=== PATIENT | female | born 1995 | race Caucasian/White ===

== ENCOUNTER 2020-05-09 14:06 | Emergency (ER) | payer SELFPAY ==
[2020-05-09 14:15] VITALS: BP 95/77; PULSE 101; RESP 20; TEMP 36.6; O2SAT 97
--- NOTE | 2020-05-09 15:06 | ED.GENADUL_ITS ---
Discharge Plan Disposition Patient Disposition: HOME Condition: Stable Discharge Details Chief Complaint: Cellulitis Clinical Impression: Paronychia Primary Care Provider: Renetta,Local ED Provider: Priyank Amos Home Meds and New Rx's Prescriptions: New clindamycin HCl 300 mg capsule 300 mg PO TID 10 Days Qty: 30 RF: 0 Discharge Instructions Instructions: Paronychia (ED) Additional Instructions: Continue Bactrim as directed. Begin taking clindamycin as directed. Keep the area clean and dry, change antibiotic dressing daily. As we discussed, rest, elevate, warm soaks and/or compresses every 2 hours for 20 minutes. Please watch for new or worsening symptoms and return to the ER for any concerns. [id number] Tylenol and/or Motrin as directed for discomfort. I have placed you on the care management list to help expedite outpatient primary care follow-up. Discharge Data Discharge Date/Time-TO BE ENTERED AT DEPARTURE: 05/09/20 15:38 Medical Decision Making 24-year-old female presents with what appears to be an ongoing paronychia. She had an I&D performed nearly 2 weeks ago but did not start her antibiotics up until the last 5 days. She is on Bactrim and reports a history of IV drug use. Infection appears to be localized, she appears well, nontoxic, no lymphangitic streaking. Will perform I&D and place her on clindamycin for more atypical coverage. Discussed the importance of elevation, warm compresses and/or soaks, and changing antibiotic dressing daily. Patient has no additional questions or concerns and is comfortable discharge at this time. I have placed her on the ca re management team to help expedite outpatient primary care follow-up. Lab Data Lab results narrative: Wound culture pending HPI General Mode of arrival: ambulatory . Date/Time Provider Initiated Documentation: 05/09/20 14:32 . Limitations to Documentation: no limitations . Information obtained by: patient . HPI Narrative: This is a 24-year-old female, [id number], presenting for ongoing infection of her right middle finger. She reports that a little over 2 weeks ago while in [place] she de veloped an infection to her right hand third digit from what she described as a hangnail. She was seen in [place] for this, and had the area drained with a scalpel, and was prescribed antibiotics. She reports that she has been here for over 2 weeks quarantining. She only filled the prescription, Bactrim, 5 days ago. She reports that the finger is really not improving but not worsening either. She denies spreading of redness, fever, numbness, tingling, weakness. She denies rash elsewhere on her body. She does report a history of IV drug use. The area has been draining a small amount of pus over the past 24-36 hours. Related Data Home Medications Medication Instructions Recorded Confirmed clindamycin HCl 300 mg PO TID 10 Days #30 cap 05/09/20 Previous Rx's Medication Instructions Recorded clindamycin HCl 300 mg PO TID 10 Days #30 cap 05/09/20 Allergies Allergy/AdvReac Type Severity Reaction Status Date / Time No Known Allergies Allergy Unverified 05/09/20 14:17 General Stated Complaint: Cellulitis BOSSMAN: 3 Review of Systems Constitutional Constitutional: Denies fever(s) and Denies weakness Musculoskeletal Musculoskeletal: Denies arthralgias, Denies numbness and Denies tingling Integumentary/Breasts Skin/Breast: Reports erythema Neurologic Neurologic: Denies numbness, Denies tingling and Denies weakness [facility] Social History Smoking/Tobacco Use Status: Never Alcohol Intake: never Drug use: Occasionally Substance use type: heroin Details: last use 1 week ago IVDA Do you feel safe at home: Yes Do you feel safe in your relationship?: Yes Exam Const General: cooperative, healthy appearing, comfortable and no acute distress Orientation: alert, awake and oriented x3 HENMT Head: normal to inspection, normocephalic and atraumatic Mouth: moist mucous membranes Eyes Conjunctivae: conjunctivae normal Sclera: sclerae normal Neck Neck: normal visual inspection, trachea midline and supple Resp Effort & Inspection: normal respiratory effort and able to speak in complete sentences Cardio Rate: regular rate Rhythm: regular rhythm Skin Lesions: no lesions Neuro General: patient alert, patient awake, moves all extremities and no focal motor deficits Motor: muscle tone normal throughout and strength 5/5 throughout Sensory Exam: no sensory deficits noted Extrem Hand/finger images: 1. Distal to the DIP around the entire nail bed there is mild erythema, swelling, or warmth, tenderness. There is mild induration and fluctuance. Medially there is a small amount of discharge. No active bleeding. Neuro, vasc ular, tendon intact. Nail intact. Psych Appearance: grossly normal Mental Status: mental status grossly normal Course Vital Signs Vital signs: Vital Signs Temperature 36.6 C 05/09/20 14:15 Pulse 101 H 05/09/20 14:15 Respiratory Rate 20 05/09/20 14:15 Blood Pressure 95/77 L 05/09/20 14:15 Pulse Oximetry 97 05/09/20 14:15 Temperature 36.6 C 05/09/20 14:15 Temperature Source Skin 05/09/20 14:15 Pulse 101 H 05/09/20 14:15 Respiratory Rate 05/09/20 14:15 Respiratory Effort Non-Labored 05/09/20 14:17 Blood Pressure 95/77 L 05/09/20 14:15 Blood Pressure Position Sitting 05/09/20 14:15 Pulse Oximetry 97 05/09/20 14:15 Oxygen Delivery Method Room Air 05/09/20 14:15 Oxygen Flow Rate 0 05/09/20 14:15 Pain Level 6 05/09/20 14:15 Lab/Test Results Lab/Test Results: 05/09/20 15:00 Finger - Right First Digit Wound Culture - Pending 05/09/20 15:00 Finger - Right First Digit Gram Stain - Pending Procedures Abscess I/D Site: Hand (Third digit) Side (if applicable): Right Local Anesthetic: Lidocaine 2%, Bupivicaine 0.5% and Other Anesthetic ([id number]-hej-[id number] mixture) Amount of anesthesia used (mL): 4 Technique: Incised with #11 Blade Amount of fluid expressed (mL): 2 Irrigation: No Packing used?: None Complications: Pain, Bleeding, Nerve Injury and Other (Culture obtained)
[2020-05-09] MEDS: Bacitracin 1 PACKET (15:22)
--- NOTE | 2020-05-09 15:30 | NUR.NOTE ---
Nursing Note: Referral to establish care with a PCP was given to Care Management. Mae Garcia
== END 2020-05-09 15:38 | disposition home or self-care (01) ==
PROVIDERS: Emergency Provider Physician Assistant
DX: L03.011 Cellulitis of right finger (principal)
CPT/HCPCS: 10060; 87077; 87070; 87205

== ENCOUNTER 2020-12-03 16:30 | Observation (INO) | payer MEDICAID, SELFPAY ==
[2020-12-03] VITALS (9 sets, daily range): BP systolic 118–148; BP diastolic 74–111; PULSE 85–123; RESP 17–18; TEMP 36.8–37.4; O2SAT 100
--- NOTE | 2020-12-03 16:32 | ED.GENADUL_ITS ---
Discharge Plan Disposition Patient Disposition: [facility] INPATIENT Condition: Fair Discharge Details Clinical Impression: Auditory hallucinations, IV drug user, Chest pain Admit Date/Time: 12/03/20 19:21 Admit Provider: Willie Duque Attending Provider: Willie Duque Primary Care Provider: Renetta,Local ED Provider: Sydnee Ortiz Discharge Data Discharge Date/Time-TO BE ENTERED AT DEPARTURE: 12/03/20 20:46 Medical Decision Making 24-year-old female with a history of IV drug abuse presents for evaluation for intrusive thoughts and concern for psychosis. Patient states she is hearing voices telling her that she is already . Sh e denies SI/HI. She last injected fentanyl today but states it was only remnants referred to as wash. Patient is tearful and anxious. Heart rate 120s. She is afebrile. No focal deficits. No meningeal signs. Differential diagnosis includes drug reaction, withdrawal, dehydration, psychosis, electrolyte abnormality, etc. EKG done on arrival notes a rate of 104, sinus, no STEMI, nondiagnostic. As patient's presentation may be a combination of organic and psychiatric components, or drug withdrawal or adverse reaction, will start with screening labs, urinalysis, urine and give IV fluids and Ativan and reassess. Labs reviewed. White blood cell count 13.51. Potassium 3.4. Bicarb 20.4. Anion gap 15.6. Troponin negative. Urinalysis notes positive nitrate and 5-10 WBCs. UDS positive for cocaine. Patient reassessed and she is still complaining of symptoms of anxiety and chest pain. Patient appears anxious. Discussed with patient that her symptoms could be multifactorial including drug use vs withdrawal, dehydration, insomnia. I do not think that patient is medically cleared to speak with mental health. Discussed that I think patient would benefit from inpatient hospitalization for IV fluids, continued monitoring and evaluation with mental health once medically cleared. Dose of Rocephin ordered for UTI. Discussed with hospitalist who accepts patient for admission. Pt states she is interested in starting MAT for opioid addiction and withdrawal. I don't think pt is medically stable to start this process at this time but may be able to start tomorrow after observation overnight and evaluation by mental health once medically cleared. D-dimer resulted after patient transferred to the floor and elevated. Discussed with Dr. Duque. CT chest ordered. Patient has a 20-gauge IV in the left AC. Radiology requested an 18-gauge in the right AC. I placed an 18-gauge needle just below the right AC. No blood return but flushes well. CT chest negative for PE. Medical Records Medical records reviewed: Yes I reviewed the patient's medical records. Imaging Data Radiologic Study: Radiologist's impression: XR Chest Exam date and time: 12/03/2020 7:28 PM Age: 24 years old Clinical indication: Chest pain TECHNIQUE: Imaging protocol: XR of the chest Views: 2 views. COMPARISON: No relevant prior studies available. FINDINGS: Lungs: Unremarkable. No consolidation. Pleural spaces: Unremarkable. No pleural effusion. No pneumothorax. Heart/Mediastinum: Unremarkable. No cardiomegaly. Bones/joints: Unremarkable. IMPRESSION: No acute abnormality. Lab Data Lab results reviewed: Yes I reviewed the patient's lab results. Labs: 12/03/20 16:55 Urine - Reflex from Ua Urine Culture - Pending Laboratory Tests Range/Units 12/03/20 12/03/20 12/03/20 16:55 16:55 17:30 WBC (4.4-10.8) 10^3/uL RBC (3.93-5.22) 10^6/uL Hgb (11.2-15.7) g/dL Hct (36.0-46.0) % MCV (80-95) fL MCH (27.0-33.0) pg MCHC (32.0-36.0) % RDW (11.7-14.6) % Plt Count (130-400) 10^3/uL MPV (8.0-11.0) fL Immature Gran % Neutrophils % Lymphocytes % Monocytes % Eosinophils % Basophils % Nucleated RBC % % Absolute Neutrophils (1.2-6.7) 10^3/uL Absolute Lymphocytes (1.2-3.4) 10^3/uL Absolute Monocytes (0.1-0.8) 10^3/uL Absolute Eosinophils (0.0-0.7) 10^3/uL Absolute Basophils (0.0-0.2) 10^3/uL Sodium (136-145) mmol/L 137 Potassium (3.5-5.1) mmol/L 3.4 L Chloride (98-107) mmol/L 101 Carbon Dioxide (21.0-32.0) mmol/L 20.4 L Anion Gap (3-11) mmol/L 15.6 H BUN (7-18) mg/dL 5 L Creatinine (0.55-1.02) mg/dL 0.6 Estimated GFR/1.73 m2 (mL/min/1.73m2) >= 60.00 Glucose (74-106) mg/dL 102 Calcium (8.5-10.1) mg/dL 9.8 Total Bilirubin (0.2-1.0) mg/dL 0.6 AST (15-37) U/L 13 L ALT (14-59) U/L 17 Alkaline Phosphatase (46-116) U/L 119 H Troponin I (<0.06) ng/mL Total Protein (6.4-8.2) g/dL 8.6 H Albumin (3.4-5.0) g/dL 3.7 Urine Color (Yellow) Yellow Urine Clarity (Clear) Clear Urine pH (5-8) 7.0 Ur Specific Worth (1.005-1.025) 1.020 Urine Protein (Negative) mg/dL Negative Urine Ketones (Negative) mg/dL 40 H Urine Blood (Negative) Negative Urine Nitrite (Negative) Positive H Urine Bilirubin (Negative) Negative Urine Urobilinogen (Up TO 0.2) EU/dL 0.2 Ur Leukocyte Esterase (Negative) Negative Urine RBC (0-2) HPF Negative Urine WBC (0-5) HPF 5-10 Ur Epithelial Cells (Negative) HPF Rare Urine Crystals (Negative) HPF Negative Urine Bacteria (Negative) HPF Many Urine Casts (Negative) LPF Negative Urine Mucus (Negative) Negative Ur Culture Indicated? Yes Urine Glucose (Negative) mg/dL Negative Urine Opiates Screen (Negative) Negative Urine Methadone Screen (Negative) Negative Ur Barbiturates Screen (Negative) Negative Ur Tricyclics Screen (Negative) Negative Ur Amphetamines Screen (Negative) Negative U Benzodiazepines Scrn (Negative) Negative Urine Cocaine Screen (Negative) Positive A Ur THC Screen (Negative) Negative Ethyl Alcohol (<3) mg/dL < 3.0 Range/Units 12/03/20 12/03/20 17:30 17:30 WBC (4.4-10.8) 10^3/uL 13.51 H RBC (3.93-5.22) 10^6/uL 4.04 Hgb (11.2-15.7) g/dL 11.5 Hct (36.0-46.0) % 34.2 L MCV (80-95) fL 84.7 MCH (27.0-33.0) pg 28.5 MCHC (32.0-36.0) % 33.6 RDW (11.7-14.6) % 13.0 Plt Count (130-400) 10^3/uL 235 MPV (8.0-11.0) fL 9.8 Immature Gran % 0.4 Neutrophils % 86.8 Lymphocytes % 6.8 Monocytes % 5.8 Eosinophils % 0.1 Basophils % 0.1 Nucleated RBC % % 0 Absolute Neutrophils (1.2-6.7) 10^3/uL 11.73 H Absolute Lymphocytes (1.2-3.4) 10^3/uL 0.92 L Absolute Monocytes (0.1-0.8) 10^3/uL 0.78 Absolute Eosinophils (0.0-0.7) 10^3/uL 0.01 Absolute Basophils (0.0-0.2) 10^3/uL 0.01 Sodium (136-145) mmol/L Potassium (3.5-5.1) mmol/L Chloride (98-107) mmol/L Carbon Dioxide (21.0-32.0) mmol/L Anion Gap (3-11) mmol/L BUN (7-18) mg/dL Creatinine (0.55-1.02) mg/dL Estimated GFR/1.73 m2 (mL/min/1.73m2) Glucose (74-106) mg/dL Calcium (8.5-10.1) mg/dL Total Bilirubin (0.2-1.0) mg/dL AST (15-37) U/L ALT (14-59) U/L Alkaline Phosphatase (46-116) U/L Troponin I (<0.06) ng/mL < 0.05 Total Protein (6.4-8.2) g/dL Albumin (3.4-5.0) g/dL Urine Color (Yellow) Urine Clarity (Clear) Urine pH (5-8) Ur Specific Worth (1.005-1.025) Urine Protein (Negative) mg/dL Urine Ketones (Negative) mg/dL Urine Blood (Negative) Urine Nitrite (Negative) Urine Bilirubin (Negative) Urine Urobilinogen (Up TO 0.2) EU/dL Ur Leukocyte Esterase (Negative) Urine RBC (0-2) HPF Urine WBC (0-5) HPF Ur Epithelial Cells (Negative) HPF Urine Crystals (Negative) HPF Urine Bacteria (Negative) HPF Urine Casts (Negative) LPF Urine Mucus (Negative) Ur Culture Indicated? Urine Glucose (Negative) mg/dL Urine Opiates Screen (Negative) Urine Methadone Screen (Negative) Ur Barbiturates Screen (Negative) Ur Tricyclics Screen (Negative) Ur Amphetamines Screen (Negative) U Benzodiazepines Scrn (Negative) Urine Cocaine Screen (Negative) Ur THC Screen (Negative) Ethyl Alcohol (<3) mg/dL ECG Data Attestation: I personally reviewed and interpreted this ECG (s) as follows: Interpretation: Rate of 104, sinus, no acute ST elevation or depression. W[place] 128. QRS 89. QTc 465. HPI General Mode of arrival: ambulatory . Date/Time Provider Initiated Documentation: 12/03/20 16:31 . Limitations to Documentation: no limitations . Information obtained by: patient . HPI Narrative: Patient is a 24-year-old female with a history of IV drug abuse and addiction presents for concern for psychosis. Patient states she has been injecting heroin for the past 5 years but more consistently over the past year. She states she last used pure heroin yesterday but used wash today which is the remnants of heroin. She states starting yesterday she began to have intrusive thoughts of voices telling her that she is already but she knows this does not make sense. She states she has not been able to sleep for the past 2 days. She states her mind is running and she cannot control the constant thoughts. She denies any thoughts of wanting to harm anyone else. She states she does also smokes crack cocaine which she last used a few days ago. She states in addition to the intrusive thoughts she has having feelings of chest pain, shortness of breath and anxiety. She denies any known fever, cough, new medications, recent travel, vomiting, diarrhea or abdominal pain. Related Data Home Medications Medication Instructions Recorded Confirmed Unknown [No Known Home Meds] 12/03/20 12/03/20 Allergies Allergy/AdvReac Type Severity Reaction Status Date / Time No Known Allergies Allergy Unverified 12/03/20 16:43 General BOSSMAN: 3 Review of Systems All systems reviewed & are unremarkable except as noted in HPI and below Constitutional Constitutional: Reports as per HPI, Denies chills and Denies fever(s) Eyes Eyes: Denies blurry vision ENT Ears, Nose, Mouth, and Throat: Denies dizziness, Denies sore throat and Denies throat swelling Cardiovascular Cardiovascular: Denies chest pain and Denies dyspnea Respiratory Respiratory: Denies cough and Denies dyspnea Gastrointestinal Gastrointestinal: Denies abdominal pain, Denies diarrhea and Denies vomiting Genitourinary Genitourinary: Denies hematuria and Denies dysuria Musculoskeletal Musculoskeletal: Denies back pain and Denies numbness Integumentary/Breasts Skin/Breast: Denies lesions and Denies rash Neurologic Neurologic: Denies dizziness, Denies localized weakness and Denies numbness Allergic/Immunologic Allergic/Immunologic: Denies throat swelling [facility] Medical History (Updated 12/03/20 @ 22:47 by Willie Duque) Opiate addiction Surgical History No significant past surgical history Family History (Updated 12/03/20 @ 22:31 by Willie Duque) Other Depression Social History (Updated 12/03/20 @ 22:33 by Willie Duque) Smoking/Tobacco Use Status: Current every day Tobacco Type: e-cigarettes Smoking risk assessment performed?: Yes Alcohol Intake: never Drug use: Occasionally Substance use type: heroin Details: used wash earlier today, has no used IV in 2 days Do you feel safe at home: Yes Do you feel safe in your relationship?: Yes Additional Social history: Living in [place] with her female anders?, who also uses Not working. Graduated high school and started some college before getting deep into drugs. Parents live in [place] Exam Const General: cooperative and no acute distress HENMS Head: normal to inspection Face and sinus: normal facial exam Eyes General: appearance normal, both eyes and all related structures Pupils: PERRL EOM: EOM intact bilaterally Neck Neck: normal visual inspection and No submandibular swelling Lymphatic: no lymphadenopathy noted Chest Chest: normal inspection of the chest and no tenderness Resp Effort & Inspection: normal respiratory effort and able to speak in complete sentences Auscultation: clear to auscultation bilaterally Cardio Rate: tachycardic Rhythm: regular rhythm GI Inspection: normal to inspection Palpation: soft, not firm, not rigid and nontender Auscultation: normal bowel sounds Skin General skin exam: no rashes or lesions noted Neuro General: patient alert, patient awake and patient oriented x3 Cognition: normal cognition Speech: speech normal Motor: muscle tone normal throughout Sensory Exam: no sensory deficits noted Extrem General: normal to inspection, full ROM, capillary refill normal, no calf tenderness bilaterally and no edema Psych Appearance: grossly normal Mental Status: mental status grossly normal Speech and Movement: speech and movement normal Affect: normal affect
--- NOTE | 2020-12-03 16:45 | RT.EKG_ITS ---
APPROVED REPORT Exam: Resting ECG Patient Location: E HR:104 bpm ECG Measurements Heart Rate 104 AXIS LA 128 P 78 QRSd 89 QRS 74 QT 353 T 61 QTc 465 Conclusion Sinus tachycardia...rate> 99 I have reviewed and interpreted ECG and agree with software generated interpretation.
[2020-12-03 17:25] LABS: Bilirubin Negative (Negative); Blood Negative (Negative); Clarity Clear (Clear); Glucose Negative (Negative); Ketones 40 mg/dL (Negative); Leukocyte Esterase Negative (Negative); Nitrite Positive (Negative); Urobilinogen 0.2 EU/dL (Up TO 0.2)
[2020-12-03 17:33] LABS: *AMPHETAMINES SCREEN URINE Negative (Negative); *BARBITURATES SCREEN URINE Negative (Negative); *BENZODIAZEPINES SCREEN URINE Negative (Negative); Cannabinoids THC Negative (Negative); Cocaine Screen,Urine Positive (Negative); METHADONE URINE SCREEN Negative (Negative); OPIATES URINE SCREEN Negative (Negative)
[2020-12-03 17:38] LABS: Tricyclic Antidepressants Negative (Negative)
[2020-12-03] MEDS: Normal Saline 1,000 ML 1000 ML IV ×2 (17:40→19:45)
[2020-12-03] MEDS: LORazepam 2 MG/ML VIAL 0.5 MG IVP ×2 (17:40→17:52)
[2020-12-03] MEDS: Normal Saline Flush 10 ML SYR IVP ×2 (17:41→23:07)
[2020-12-03 17:44] LABS: Abs Immature Grans 0.05 10^3/uL (0.0-0.06); Absolute Basophil Count 0.01 10^3/uL (0.0-0.2); Absolute Eosinophil Count 0.01 10^3/uL (0.0-0.7); Absolute Lymphocyte Count 0.92 10^3/uL (1.2-3.4); Absolute Neutrophil Count 11.73 10^3/uL (1.2-6.7); Basophils % 0.1; Eosinophils % 0.1; HCT 34.2 % (36.0-46.0); HGB 11.5 g/dL (11.2-15.7); Immature Grans % 0.4; Lymphocytes % 6.8; MCH 28.5 pg (27.0-33.0); MCHC 33.6 % (32.0-36.0); MCV 84.7 fL (80-95); MPV 9.8 fL (8.0-11.0); Monocytes % 5.8; Neutrophils % 86.8; Nucleated RBC 0 %; Platelet Count 235 10^3/uL (130-400); RBC 4.04 10^6/uL (3.93-5.22); RDW-SD 40.1 fL; WBC 13.51 10^3/uL (4.4-10.8)
[2020-12-03 17:49] LABS: Absolute Monocyte Count 0.78 10^3/uL (0.1-0.8)
[2020-12-03 17:53] LABS: Bacteria Many HPF (Negative); C & S Indicated? Yes; Casts Negative LPF (Negative); Crystals Negative HPF (Negative); Epithelial Cells Rare HPF (Negative); Mucus Negative (Negative); RBC Negative HPF (0-2)
[2020-12-03 17:57] LABS: ALT 17 U/L (14-59); AST 13 U/L (15-37); Albumin 3.7 g/dL (3.4-5.0); Alkaline Phosphatase 119 U/L (46-116); Anion Gap 15.6 mmol/L (3-11); BUN 5 mg/dL (7-18); Bilirubin, Total 0.6 mg/dL (0.2-1.0); CO2 20.4 mmol/L (21.0-32.0); CREATININE 0.6 mg/dL (0.55-1.02); Calcium 9.8 mg/dL (8.5-10.1); Chloride 101 mmol/L (98-107); Glucose 102 mg/dL (74-106); Potassium 3.4 mmol/L (3.5-5.1); Sodium 137 mmol/L (136-145); Total Protein 8.6 g/dL (6.4-8.2)
[2020-12-03 18:28] LABS: ETHANOL BLOOD < 3.0 mg/dL (<3)
[2020-12-03 19:41] LABS: Troponin I < 0.05 ng/mL (<0.06)
--- NOTE | 2020-12-03 19:42 | DI.RAD_ITS ---
EXAM: XR CHEST 2V PA LATERAL CLINICAL HISTORY: chest pain, r/o acute disease TECHNIQUE: 2D digital imaging was performed. COMPARISON: No exams were available for comparison FINDINGS: The heart is not enlarged. The lungs are clear and well expanded. No pleural effusion seen. Mediastin al contours appear intact. IMPRESSION: Normal chest. RADIATION DOSE DELIVERED: Total DLP
[2020-12-03] MEDS: cefTRIAXone 1 GM/50 ML BAG IVPB (19:45)
--- NOTE | 2020-12-03 19:51 | DI.VRAD_ITS ---
PROCEDURE INFORMATION: Exam: XR Chest Exam date and time: 12/03/2020 7:28 PM Age: 24 years old Clinical indication: Chest pain TECHNIQUE: Imaging protocol: XR of the chest Views: 2 views. COMPARISON: No relevant prior studies available. FINDINGS: Lungs: Unremarkable. No consolidation. Pleural spaces: Unremarkable. No pleural effusion. No pneumothorax. Heart/Mediastinum: Unremarkable. No cardiomegaly. Bones/joints: Unremarkable. IMPRESSION: No acute abnormality. Dictated and Authenticated by: Navid Allen MD. Ordering:ELIZABETH Randhawa MD
[2020-12-03] MEDS: Ketorolac 30 MG/ML VIAL IVP (20:19)
[2020-12-03] MEDS: LORazepam 2 MG/ML VIAL 1 MG IVP (20:20)
[2020-12-03 20:46] LABS: D-Dimer 1194 ng/mlFEU (<500)
[2020-12-03 20:47] LABS: Source Nasal/Nares
--- NOTE | 2020-12-03 21:45 | DI.CT_ITS ---
EXAM: CT CHEST PE CTA CLINICAL HISTORY: chest pain, tachycardia, elev d dimer, r/o PE. TECHNIQUE: Imaging Protocol: Axial CT angiography was performed with multi-slice acquisition and mu lti-planar and/or 3D reconstructions. CONTRAST MATERIAL: Intravenous: Omnipaque 350 Contrast volume:structured data in ml COMPARISON: No exams were available for comparison FINDINGS: CT angiography of the chest was performed with intravenous infusion of 85 cc of Omnipaque 350. The lungs are clear. No pleural effusion. Tracheobronchial tree appears intact. No evidence of pulmonary embolic disease. Thoracic aorta is of normal diameter, no thoracic aortic an eurysm or dissection, major branch vessels appear intact. No mediastinal or hilar adenopathy. Images obtained through the upper abdomen show unremarkable appearance of the visualized portions of the liver, spleen, pancreas, adrenals, and kidneys. IMPRESSION: Negative CT angiogram of the chest. No evidence of pulmonary embolic disease. RADIATION DOSE DELIVERED: 216.56mGy.cm Total DLP 216.56mGy.cm Total DLP DATA REPOSITORY: All CT scans at this facility are submitted to the National Radiology Data Registry (NRDR) Dose Index Registry (DIR) with the [employer] ([employer]). RADIATION OPTIMIZATION: All CT scans at this facility use at least one of these dose optimization te chniques: automated exposure control; mA and/or kV adjustment per patient size (includes targeted exa ms where dose is matched to clinical indication); or iterative reconstruction.
--- NOTE | 2020-12-03 22:22 | HPE_ITS ---
Date of service: 12/03/20 Time of Service: 22:22 Assessment and Plan Assessment and plan (1) Auditory hallucinations: Status: Acute Assessment and plan: Patient's history just a regular pattern of auditory hallucinations associated with coming down from stimulants. The cocaine in her urine is consistent with this. She denies having psychotic symptoms outside of the context of drug use, so I do not think this is a primary psychiatric condition. We will treat supportively had monitor. I will only use antipsychotic if needed for her own safety or the safety of those caring for her. (2) Opiate addiction: Status: Acute Assessment and plan: Patient has a history of several years of ongoing opioid use. This is also complicated by stimulant abuse. She has never been on maintenance therapy, but has used Suboxone for medically assisted withdrawal in the past. She is interested in getting him to treatment, and had already contacted assistant women's tennis coach to help her and her fianc?. She currently has evidence of mild to moderate opioid withdrawal, though she is somewhat sleepy likely rela vanda to the benzodiazepine she got in the emergency room. Given her overall picture I think that it would be safe appropriate to start buprenorphine therapy at 4 mg and monitor her clinically. Will not give additional sedative until we see how she responds. If she is still having symptoms tomorrow morning, I would increase to 8 mg sublingually. She should be transitioned to maintenance therapy upon discharge, with of versus spoke placement based on treatment needs questionnaire score. (3) IV drug user: Status: Acute Assessment and plan: Given this risk factor, I will screen for HIV and hepatitis with morning labs. (4) Chest pain: Status: Acute Assessment and plan: This may simply be musculoskeletal given his reproducible. EKG is not consistent with ischemia related to cocaine use. I did discuss data troponin with Dr. Ortiz in the emergency room, but I did not see this result yet. I agree with a CT chest given D-dimer. (5) DVT prophylaxis: Status: Acute Assessment and plan: Lovenox, associated for IV drug use does increase her risk of blood clots. (6) UTI (urinary tract infection): Status: Acute Assessment and plan: Urinalysis suggest. Tract infection. Probably symptoms of either mental status changes, which are likely from a different cause. She was given ceftriaxone, which is adequate treatment for uncomplicated UTI. (7) Discharge planning issues: Status: Acute Assessment and plan: Patient is currently stable on the medical floor. She is on telemetry given her drug use tachycardia. She is full code. She should be connected to get with coverage assistant track coach and a transition to outpatient medically assisted treatment for opioid use disorder should be made prior to discharge. History of Present Illness History of Present Illness Chief Complaint: hallucinations Narrative: 22-year-old female with active IV drug use including cocaine has a history acute psychotic disorder associate with drug use presents with 2 days of persistent distressing auditory hallucinations. Patient states that the voices are continuous. The voices tell her that she is already , though she denies suicidal or homicidal ideation. She has had similar episodic symptoms, each time when she was coming down from methamphetamine or cocaine. He has never lasted this long for her. She denies any history of psychotic outside of the setting of drug use or before she started using drugs in her teens. She has been using fentanyl regularly, up to 6 or 7 tickets at a time. She ran out and has only been using washes today, most recently 6 hours ago. She states she last used cocaine 5 days ago as far she knows. She has not slept for 2 days, so she is tired and feels like sleeping now. She also complained of sharp persistent pain in her mid chest. She is not sure what had first started, but has been present for hours. It is tender to touch started on something present. Feels like her heart is fast but does not feel short of breath. She is not coughing or spitting up blood or mucus. Pain does not radiate. It is moderate in intensity. She denies any recent swelling or arms or legs. She has been injecting into her dorsal hand, not centrally. Review of Systems Constitutional Constitutional: Denies chills, Reports fatigue, Denies fever(s), Denies headache(s), Reports lethargy and Denies weakness Eyes Eyes: Denies change in vision and Denies irritation ENT Ears, Nose, Mouth, and Throat: Denies dizziness, Denies headache(s), Denies nasal congestion, Denies nasal discharge and Denies sore throat Cardiovascular Cardiovascular: Reports diaphoresis, Reports rapid heart rate, Denies pedal edema, Denies irregular heart rhythm, Denies radiating jaw, neck or arm pain and Denies orthopnea Respiratory Respiratory: Denies cough, Denies excessive phlegm production and Denies wheezing Gastrointestinal Gastrointestinal: Denies constipation, Denies heartburn, Reports diarrhea, Reports nausea and Denies vomiting Comments: Started to get crampy abdominal pain and had one loose bowel movement just now Genitourinary Genitourinary: Denies hematuria, Denies dysuria and Denies urinary incontinence Musculoskeletal Musculoskeletal: Reports myalgias and Denies joint swelling Integumentary/Breasts Skin/Breast: Denies rash and Denies skin ulcer Comments: Injection tracks left hand Neurologic Neurologic: Denies confusion, Denies dizziness, Denies headache(s), Denies sensory deficit and Denies weakness Psychiatric Psychiatric: Reports as per HPI, Reports anxiety, Denies confusion, Reports depr ession, Reports irritability, Denies visual hallucinations, Reports hallucinations and Denies tactile hallucinations Endocrine Endocrine: Reports fatigue Hematologic/Lymphatic Hematologic/Lymphatic: Denies easy bleeding Allergic/Immunologic Allergic/Immunologic: Denies wheezing [facility] Medical History (Updated 12/03/20 @ 22:47 by Willie Duque) Opiate addiction Surgical History No significant past surgical history Family History (Updated 12/03/20 @ 22:31 by Willie Duque) Other Depression Social History (Updated 12/03/20 @ 22:33 by Willie Duque) Smoking/Tobacco Use Status: Current every day Tobacco Type: e-cigarettes Smoking risk assessment performed?: Yes Alcohol Intake: never Drug use: Occasionally Substance use type: heroin Details: last use today IVDA Do you feel safe at home: Yes Do you feel safe in your relationship?: Yes Additional Social history: Living in [place] with her female fianthony?, who also uses Not working. Graduated high school and started some college before getting deep into drugs. Parents live in [place] Med Home Medications and Allergies Allergies Allergy/AdvReac Type Severity Reaction Status Date / Time No Known Allergies Allergy Unverified 12/03/20 16:43 Home Medications Medication Instructions Recorded Confirmed Type Unknown [No Known Home Meds] 12/03/20 12/03/20 History Exam Narrative Exam Narrative: GEN: Thin appearing, somewhat clammy. Sleeping, but anxious appearing when aroused. Gives a linear history, cooperative, oriented x3. No acute distress at rest. HEENT: Head atraumatic. Conjunctiva clear, no icterus. PEERL, EOMI, pupils mildly dilated at about 5 mm bilaterally. no rhinorrhea. MMM, OP benign. Neck is supple with no masses or lymphadenopathy, trachea midline LUNGS: CTAB with normal effort CV: RRR with no murmurs, gallops, or rubs. ABD: +BS, soft, NT/ND EXT: no cyanosis, clubbing, or edema. No swelling in the arms or legs. MSK: Tender to palpation of the mid sternum. No joint redness or swelling NEURO: CN 2-12 grossly intact. Normal movement of 4 extremities. Normal speech and coordination SKIN: Track reyna left dorsal hand, no abscess or infection. No rashs or open wounds. PSYCH: Anxious mood and affect. Other than described hallucinations, normal thought process. Memory intact. Results Labs Result diagrams: 12/03/20 17:30 12/03/20 17:30 Labs: Laboratory Results - last 24 hr 12/03/20 12/03/20 12/03/20 16:55 16:55 17:30 WBC RBC Hgb Hct MCV MCH MCHC RDW Plt Count MPV Immature Gran % Neutrophils % Lymphocytes % Monocytes % Eosinophils % Basophils % Nucleated RBC % Absolute Neutrophils Absolute Lymphocytes Absolute Monocytes Absolute Eosinophils Absolute Basophils D-Dimer Sodium 137 Potassium 3.4 L Chloride 101 Carbon Dioxide 20.4 L Anion Gap 15.6 H BUN 5 L Creatinine 0.6 Estimated GFR/1.73 m2 >= 60.00 Glucose 102 Calcium 9.8 Total Bilirubin 0.6 AST 13 L ALT 17 Alkaline Phosphatase 119 H Troponin I Total Protein 8.6 H Albumin 3.7 Urine Color Yellow Urine Clarity Clear Urine pH 7.0 Ur Specific [place] 1.020 Urine Protein Negative Urine Ketones 40 H Urine Blood Negative Urine Nitrite Positive H Urine Bilirubin Negative Urine Urobilinogen 0.2 Ur Leukocyte Esterase Negative Urine RBC Negative Urine WBC 5-10 Ur Epithelial Cells Rare Urine Crystals Negative Urine Bacteria Many Urine Casts Negative Urine Mucus Negative Ur Culture Indicated? Yes Urine Glucose Negative Urine Opiates Screen Negative Urine Methadone Screen Negative Ur Barbiturates Screen Negative Ur Tricyclics Screen Negative Ur Amphetamines Screen Negative U Benzodiazepines Scrn Negative Urine Cocaine Screen Positive A Ur THC Screen Negative Ethyl Alcohol < 3.0 COVID-19 Source 12/03/20 12/03/20 12/03/20 17:30 17:30 19:50 WBC 13.51 H RBC 4.04 Hgb 11.5 Hct 34.2 L MCV 84.7 MCH 28.5 MCHC 33.6 RDW 13.0 Plt Count 235 MPV 9.8 Immature Gran % 0.4 Neutrophils % 86.8 Lymphocytes % 6.8 Monocytes % 5.8 Eosinophils % 0.1 Basophils % 0.1 Nucleated RBC % 0 Absolute Neutrophils 11.73 H Absolute Lymphocytes 0.92 L Absolute Monocytes 0.78 Absolute Eosinophils 0.01 Absolute Basophils 0.01 D-Dimer 1194 H Sodium Potassium Chloride Carbon Dioxide Anion Gap BUN Creatinine Estimated GFR/1.73 m2 Glucose Calcium Total Bilirubin AST ALT Alkaline Phosphatase Troponin I < 0.05 Total Protein Albumin Urine Color Urine Clarity Urine pH Ur Specific [place] Urine Protein Urine Ketones Urine Blood Urine Nitrite Urine Bilirubin Urine Urobilinogen Ur Leukocyte Esterase Urine RBC Urine WBC Ur Epithelial Cells Urine Crystals Urine Bacteria Urine Casts Urine Mucus Ur Culture Indicated? Urine Glucose Urine Opiates Screen Urine Methadone Screen Ur Barbiturates Screen Ur Tricyclics Screen Ur Amphetamines Screen U Benzodiazepines Scrn Urine Cocaine Screen Ur THC Screen Ethyl Alcohol COVID-19 Source 12/03/20 20:40 WBC RBC Hgb Hct MCV MCH MCHC RDW Plt Count MPV Immature Gran % Neutrophils % Lymphocytes % Monocytes % Eosinophils % Basophils % Nucleated RBC % Absolute Neutrophils Absolute Lymphocytes Absolute Monocytes Absolute Eosinophils Absolute Basophils D-Dimer Sodium Potassium Chloride Carbon Dioxide Anion Gap BUN Creatinine Estimated GFR/1.73 m2 Glucose Calcium Total Bilirubin AST ALT Alkaline Phosphatase Troponin I Total Protein Albumin Urine Color Urine Clarity Urine pH Ur Specific [place] Urine Protein Urine Ketones Urine Blood Urine Nitrite Urine Bilirubin Urine Urobilinogen Ur Leukocyte Esterase Urine RBC Urine WBC Ur Epithelial Cells Urine Crystals Urine Bacteria Urine Casts Urine Mucus Ur Culture Indicated? Urine Glucose Urine Opiates Screen Urine Methadone Screen Ur Barbiturates Screen Ur Tricyclics Screen Ur Amphetamines Screen U Benzodiazepines Scrn Urine Cocaine Screen Ur THC Screen Ethyl Alcohol COVID-19 Source Nasal/nares Last Vital Signs Temp 37.4 C 12/03/20 20:56 Pulse 85 12/03/20 21:45 Resp 17 12/03/20 20:56 BP 118/74 12/03/20 20:56 Pulse Ox 100 12/03/20 20:56 COVID-19 Screening Have you, or household traveled for leisure in last 14 days?: No Had IN PERSON contact w/suspected or confirmed C-19 person: No
[2020-12-03 22:54] LABS: COVID-19 PCR Negative (Negative)
[2020-12-03] MEDS: Omnipaque 350 MG/ML 100 ML BTL IJ (23:06)
[2020-12-03] MEDS: Normal Saline - Diluent 50 ML VIAL IV (23:07)
--- NOTE | 2020-12-03 23:36 | DI.VRAD_ITS ---
PROCEDURE INFORMATION: Exam: CT Angiography Chest With Contrast Exam date and time: 12/03/2020 10:44 PM Age: 24 years old Clinical indication: Other: Chest pain elevated d-dimer TECHNIQUE: Imaging protocol: Computed tomographic angiography of the chest with contrast. 3D rendering (Not supervised by radiologist): MIP and/or 3D reconstructed images were created by the technologist. Contrast material: OMNIPAUE 350; Contrast volume: 85 ml; Contrast route: INTRAVENOUS (IV); COMPARISON: CR XR CHEST 2V PA LATERAL 12/03/2020 7:33 PM FINDINGS: Pulmonary arteries: Normal. No pulmonary emboli. Aorta: Unremarkable. No aortic aneurysm. No aortic dissection. Lungs: Unremarkable. No consolidation. No masses. Pleural spaces: Unremarkable. No pneumothorax. No pleural effusion. Heart: Unremarkable. No cardiomegaly. No pericardial effusion. Lymph nodes: Unremarkable. No enlarged lymph nodes. Bones/joints: Unremarkable. No acute fracture. Soft tissues: Unremarkable. IMPRESSION: No evidence for pulmonary embolus. Dictated and Authenticated by: Thea Ames MD. Ordering:ELIZABETH Randhawa MD
[2020-12-04] MEDS: Buprenorphine/Naloxone 4 mg/1 mg FILM 1 EACH SL (00:39)
[2020-12-04 00:40] VITALS: BP 141/74; PULSE 61; RESP 16; TEMP 36.5; O2SAT 100
[2020-12-04] MEDS: Zolpidem 5 MG TAB PO ×2 (01:32→02:31)
[2020-12-04] MEDS: Haloperidol 5 MG TAB PO (02:07)
[2020-12-04] MEDS: Normal Saline Flush 10 ML SYR IVP (03:15)
[2020-12-04] MEDS: LORazepam 2 MG/ML VIAL 1 MG IVP (03:15)
[2020-12-04 03:21] VITALS: BP 122/80; PULSE 88; RESP 20; TEMP 37.3; O2SAT 100
[2020-12-04 03:42] VITALS: PULSE 90
--- NOTE | 2020-12-04 07:36 | NUR.NOTE ---
Nursing Note: Nurse assessed patient's vital signs at approximately 0040. Patient at appeared calm upon entering the room. During vital assessments patient repeated that she was not going to be able to sleep. Patient appears anxious. Patient requesting for medication to help with sleep Nurse notified Dr. Duque and Dr Duque ordered Ambien. Patient received Ambien x 2 and was still unable to fall asleep. At around 0140 nurse entered room, patient appeared increasing anxious, pacing in room. Patient stood on top of bed and yelled extremely loudly. Nurse asked patient to sit on bed for safety. Patient agreed and sat on bed. Patient reported that her psychosis was back. Nurse asked patient to explain further. Patient either unable or unwilling to describe. Dr. Duque ordered PO Haldol, patient willingly took. Patient requesting to talk to fiance on phone, phone provided. Patient reported around 0240 that she was leaving and her fiance was coming to pick her up. MD Dr Duque notified. Dr Duque spoke with patient. Patient agreed to stay and Dr. Duque ordered IV ativan stating she had received this in the ED earlier. 1mg IV ativan was given to patient at around 0315. At 0330 patient reported that she was leaving. Patient informed that leaving was against medical advice. Patient states she is leaving and her fiance is on her way to pick her up. already talked with patient regarding leaving against medical advice. Patient IV removed and patient signed AMA paperwork. At approximately 0400 patient's significant other arrived to hospital. Nurse walked patient to ED entrance and observed patient get into passenger seat of car and leave. Dr. Duque notified of patient leaving against medical advice.
--- NOTE | 2020-12-04 08:19 | W.PM.DS.N ---
Date of service: 12/04/20 Time of Service: 08:19 DS: Diagnosis Discharge Diagnosis (1) Auditory hallucinations: Status: Acute (2) Opiate addiction: Status: Acute (3) IV drug user: Status: Acute (4) Chest pain: Status: Acute (5) DVT prophylaxis: Status: Acute (6) UTI (urinary tract infection): Status: Acute (7) Discharge planning issues: Status: Acute Discharge Plan Disposition Patient Disposition: AGAINST MEDICAL ADVICE Condition: Fair Discharge Details Reason For Visit: AUDITORY HALLUCINATIONS,CHEST PAIN,UTI,DEHYRATION Admit Date/Time: 12/03/20 19:21 Admit Provider: Willie Duque Attending Provider: Willie Duque Primary Care Provider: Renetta,[facility] Course Hospital Course: 22-year-old female with active IV drug use including cocaine has a history acute psychotic disorder associate with drug use presents with 2 days of persistent distressing auditory hallucinations. Patient states that the voices are continuous. The voices tell her that she is already , though she denies suicidal or homicidal ideation. She has had similar episodic symptoms, each time when she was coming down from methamphetamine or cocaine. He has never lasted this long for her. She denies any history of psychotic outside of the setting of drug use or before she started using drugs in her teens. She has been using fentanyl regularly, up to 6 or 7 tickets at a time. She ran out and has only been using washes today, most recently 6 hours ago. She states she last used cocaine 5 days ago as far she knows. She has not slept for 2 days, so she is tired and feels like sleeping now. Given lorazepam in the ED. Symptoms consistent with opioid withdrawal so offered buprenorphine, given 4mg. She continued to complain of hallucinations and was agitated. We tried haldol 5mg orally but this didn't help much. She left AMA. Home Meds and New Rx's Prescriptions: No Action No Known Home Meds RF: 0 Discharge Instructions Activity:: Activity as Tolerated Equipment/Supplies:: No Equipment Needed Diet:: As Tolerated Discharge Orders Discharge Orders: Discharge Order (Routine); Ordered 12/04/20 Ordered By: Willie Duque Discharge Data Discharge Date/Time-TO BE ENTERED AT DEPARTURE: 12/04/20 04:18 DS: Summary Time Spent with Patient providing and/or coordinating discharge services: Less than 30 minutes Status at Discharge Functional status at discharge: independent ambulation Overall status at discharge: patient is not back to baseline Mental Status: other (agitated) Speech and Movement: speech and movement normal and agitated Mood: anxious mood and irritable mood Affect: labile affect Exam Narrative Exam Narrative: GEN: Alert and agitated. yelling in room off/on, she is able to follow discussion and understand risk HEENT: Head atraumatic. Conjunctiva clear, no icterus. LUNGS: normal effort SKIN: No rashs or open wounds. PSYCH: agitated, anxious appearing, auditory hallicination. Psych Speech and Movement: speech and movement normal and agitated Mood: anxious mood and irritable mood Affect: labile affect DS: Data Vitals/I&O Vitals and I&O: Vital Signs Temperature 37.3 C 12/04/20 03:21 Temperature Source Skin 12/04/20 03:21 Pulse 90 12/04/20 03:42 Pulse Rhythm Regular 12/04/20 00:40 Pulse 104 H 12/03/20 20:30 Respiratory Rate 20 12/04/20 03:21 Respiratory Effort Non-Labored 12/04/20 00:40 Respiratory Depth Normal 12/04/20 00:40 Respiratory Pattern Normal 12/04/20 00:40 Blood Pressure 122/80 12/04/20 03:21 Blood Pressure Position Sitting 12/03/20 16:36 Pulse Oximetry 100 12/04/20 03:21 Oxygen Delivery Method Room Air 12/04/20 03:21 Oxygen Flow Rate 0 12/04/20 03:21 Pain Level 6 12/04/20 03:21 Intake & Output 12/03/20 12/03/20 12/04/20 11:59 23:59 11:59 Intake Total 1010 / 1010 400 / 400 Balance 1010 / 1010 400 / 400 Weight 44.452 kg Intake: IV 1010 / 1010 Oral 400 / 400 Other: Comment voiding independently in toilet Stool Size Large Stool Characteristics Liquid Voiding Methods Toilet Data Completed and Pending Labs on day of discharge: Labs from last 24 hours 12/04/20 12/04/20 12/04/20 08:30 08:30 05:35 WBC RBC Hgb Hct MCV MCH MCHC RDW Plt Count MPV Immature Gran % Neutrophils % Band Neutrophils % Lymphocytes % Atypical Lymphs % Monocytes % Eosinophils % Basophils % Metamyelocytes % Myelocytes % Promyelocytes % Other Cells % Nucleated RBC % Absolute Neutrophils Absolute Lymphocytes Absolute Monocytes Absolute Eosinophils Absolute Basophils RBC Morphology Polychromasia Hypochromasia Poikilocytosis Basophilic Stippling Anisocytosis Microcytosis Macrocytosis Spherocytes Tear Drop Cells Ovalocytes Stomatocytes Walsh-Mccalla Bodies [place] Cells/Echinocytes Acanthocytes (Spur) Schistocytes D-Dimer Sodium Potassium Chloride Carbon Dioxide Anion Gap BUN Creatinine Estimated GFR/1.73 m2 Glucose Calcium Total Bilirubin AST ALT Alkaline Phosphatase Troponin I Total Protein Albumin Urine Color Urine Clarity Urine pH Ur Specific [place] Urine Protein Urine Ketones Urine Blood Urine Nitrite Urine Bilirubin Urine Urobilinogen Ur Leukocyte Esterase Urine RBC Urine WBC Ur Epithelial Cells Urine Crystals Urine Bacteria Urine Casts Urine Mucus Ur Culture Indicated? Urine Glucose Urine Opiates Screen Urine Methadone Screen Ur Barbiturates Screen Ur Tricyclics Screen Ur Amphetamines Screen U Benzodiazepines Scrn Urine Cocaine Screen Ur THC Screen Ethyl Alcohol COVID-19 Source SARS-CoV-2 (PCR) Hep Bs Antigen Cancelled Hepatitis C Antibody Cancelled HIV 1&2 Ag/Ab, 4th Gen Cancelled 12/04/20 12/04/20 12/03/20 05:35 05:35 20:40 WBC Cancelled RBC Cancelled Hgb Cancelled Hct Cancelled MCV Cancelled MCH Cancelled MCHC Cancelled RDW Cancelled Plt Count Cancelled MPV Cancelled Immature Gran % Cancelled Neutrophils % Cancelled Band Neutrophils % Cancelled Lymphocytes % Cancelled Atypical Lymphs % Cancelled Monocytes % Cancelled Eosinophils % Cancelled Basophils % Cancelled Metamyelocytes % Cancelled Myelocytes % Cancelled Promyelocytes % Cancelled Other Cells % Cancelled Nucleated RBC % Cancelled Absolute Neutrophils Cancelled Absolute Lymphocytes Cancelled Absolute Monocytes Cancelled Absolute Eosinophils Cancelled Absolute Basophils Cancelled RBC Morphology Cancelled Polychromasia Cancelled Hypochromasia Cancelled Poikilocytosis Cancelled Basophilic Stippling Cancelled Anisocytosis Cancelled Microcytosis Cancelled Macrocytosis Cancelled Spherocytes Cancelled Tear Drop Cells Cancelled Ovalocytes Cancelled Stomatocytes Cancelled Walsh-Mccalla Bodies Cancelled [place] Cells/Echinocytes Cancelled Acanthocytes (Spur) Cancelled Schistocytes Cancelled D-Dimer Sodium Cancelled Potassium Cancelled Chloride Cancelled Carbon Dioxide Cancelled Anion Gap Cancelled BUN Cancelled Creatinine Cancelled Estimated GFR/1.73 m2 Cancelled Glucose Cancelled Calcium Cancelled Total Bilirubin AST ALT Alkaline Phosphatase Troponin I Total Protein Albumin Urine Color Urine Clarity Urine pH Ur Specific [place] Urine Protein Urine Ketones Urine Blood Urine Nitrite Urine Bilirubin Urine Urobilinogen Ur Leukocyte Esterase Urine RBC Urine WBC Ur Epithelial Cells Urine Crystals Urine Bacteria Urine Casts Urine Mucus Ur Culture Indicated? Urine Glucose Urine Opiates Screen Urine Methadone Screen Ur Barbiturates Screen Ur Tricyclics Screen Ur Amphetamines Screen U Benzodiazepines Scrn Urine Cocaine Screen Ur THC Screen Ethyl Alcohol COVID-19 Source Nasal/nares SARS-CoV-2 (PCR) Negative Hep Bs Antigen Hepatitis C Antibody HIV 1&2 Ag/Ab, 4th Gen 12/03/20 12/03/20 12/03/20 19:50 17:30 17:30 WBC 13.51 H RBC 4.04 Hgb 11.5 Hct 34.2 L MCV 84.7 MCH 28.5 MCHC 33.6 RDW 13.0 Plt Count 235 MPV 9.8 Immature Gran % 0.4 Neutrophils % 86.8 Band Neutrophils % Lymphocytes % 6.8 Atypical Lymphs % Monocytes % 5.8 Eosinophils % 0.1 Basophils % 0.1 Metamyelocytes % Myelocytes % Promyelocytes % Other Cells % Nucleated RBC % 0 Absolute Neutrophils 11.73 H Absolute Lymphocytes 0.92 L Absolute Monocytes 0.78 Absolute Eosinophils 0.01 Absolute Basophils 0.01 RBC Morphology Polychromasia Hypochromasia Poikilocytosis Basophilic Stippling Anisocytosis Microcytosis Macrocytosis Spherocytes Tear Drop Cells Ovalocytes Stomatocytes Walsh-Mccalla Bodies [place] Cells/Echinocytes Acanthocytes (Spur) Schistocytes D-Dimer 1194 H Sodium Potassium Chloride Carbon Dioxide Anion Gap BUN Creatinine Estimated GFR/1.73 m2 Glucose Calcium Total Bilirubin AST ALT Alkaline Phosphatase Troponin I < 0.05 Total Protein Albumin Urine Color Urine Clarity Urine pH Ur Specific [place] Urine Protein Urine Ketones Urine Blood Urine Nitrite Urine Bilirubin Urine Urobilinogen Ur Leukocyte Esterase Urine RBC Urine WBC Ur Epithelial Cells Urine Crystals Urine Bacteria Urine Casts Urine Mucus Ur Culture Indicated? Urine Glucose Urine Opiates Screen Urine Methadone Screen Ur Barbiturates Screen Ur Tricyclics Screen Ur Amphetamines Screen U Benzodiazepines Scrn Urine Cocaine Screen Ur THC Screen Ethyl Alcohol COVID-19 Source SARS-CoV-2 (PCR) Hep Bs Antigen Hepatitis C Antibody HIV 1&2 Ag/Ab, 4th Gen 12/03/20 12/03/20 12/03/20 17:30 16:55 16:55 WBC RBC Hgb Hct MCV MCH MCHC RDW Plt Count MPV Immature Gran % Neutrophils % Band Neutrophils % Lymphocytes % Atypical Lymphs % Monocytes % Eosinophils % Basophils % Metamyelocytes % Myelocytes % Promyelocytes % Other Cells % Nucleated RBC % Absolute Neutrophils Absolute Lymphocytes Absolute Monocytes Absolute Eosinophils Absolute Basophils RBC Morphology Polychromasia Hypochromasia Poikilocytosis Basophilic Stippling Anisocytosis Microcytosis Macrocytosis Spherocytes Tear Drop Cells Ovalocytes Stomatocytes Walsh-Mccalla Bodies [place] Cells/Echinocytes Acanthocytes (Spur) Schistocytes D-Dimer Sodium 137 Potassium 3.4 L Chloride 101 Carbon Dioxide 20.4 L Anion Gap 15.6 H BUN 5 L Creatinine 0.6 Estimated GFR/1.73 m2 >= 60.00 Glucose 102 Calcium 9.8 Total Bilirubin 0.6 AST 13 L ALT 17 Alkaline Phosphatase 119 H Troponin I Total Protein 8.6 H Albumin 3.7 Urine Color Yellow Urine Clarity Clear Urine pH 7.0 Ur Specific [place] 1.020 Urine Protein Negative Urine Ketones 40 H Urine Blood Negative Urine Nitrite Positive H Urine Bilirubin Negative Urine Urobilinogen 0.2 Ur Leukocyte Esterase Negative Urine RBC Negative Urine WBC 5-10 Ur Epithelial Cells Rare Urine Crystals Negative Urine Bacteria Many Urine Casts Negative Urine Mucus Negative Ur Culture Indicated? Yes Urine Glucose Negative Urine Opiates Screen Negative Urine Methadone Screen Negative Ur Barbiturates Screen Negative Ur Tricyclics Screen Negative Ur Amphetamines Screen Negative U Benzodiazepines Scrn Negative Urine Cocaine Screen Positive A Ur THC Screen Negative Ethyl Alcohol < 3.0 COVID-19 Source SARS-CoV-2 (PCR) Hep Bs Antigen Hepatitis C Antibody HIV 1&2 Ag/Ab, 4th Gen 12/03/20 16:55 Urine - Reflex from Ua Urine Culture - Pending Preliminary micro results at discharge 12/03/20 16:55 Urine Culture - Pending Urine - Reflex from Ua [facility] Medical History (Updated 12/03/20 @ 22:47 by Willie Duque) Opiate addiction Surgical History No significant past surgical history Family History (Updated 12/03/20 @ 22:31 by Willie Duque) Other Depression Social History (Updated 12/03/20 @ 22:33 by Willie Duque) Smoking/Tobacco Use Status: Current every day Tobacco Type: e-cigarettes Smoking risk assessment performed?: Yes Alcohol Intake: never Drug use: Occasionally Substance use type: heroin Details: last use today IVDA Do you feel safe at home: Yes Do you feel safe in your relationship?: Yes Additional Social history: Living in [place] with her female anders?, who also uses Not working. Graduated high school and started some college before getting deep into drugs. Parents live in [place]
== END 2020-12-04 04:18 | disposition left against medical advice (07) ==
LOC: ER 20:38 → MS 20:50
PROVIDERS: Admitting Provider Family Medicine; Emergency Provider Physician Assistant; Visit Provider Family Medicine
DX: F11.23 Opioid dependence with withdrawal (principal); F15.951 Other stimulant use, unspecified with stimulant-induced psychotic disorder with hallucinations; F14.951 Cocaine use, unspecified with cocaine-induced psychotic disorder with hallucinations; N39.0 Urinary tract infection, site not specified; R07.89 Other chest pain; E86.0 Dehydration; F17.210 Nicotine dependence, cigarettes, uncomplicated; Z20.822 Contact with and (suspected) exposure to COVID-19
CPT/HCPCS: 36415; 71275; 80048; 80053; 80307; 81025; 86803; 87077; 87340; 87389; 87635; 93005; 96361; 96365; 96375; 96376; 99222; 99238; 99285; 71046; 80320; 81003; 81015; 84484; 85025; 85379; 87086; 87186; 93010; G0378; J0696; J1885; J2060; J3490

== ENCOUNTER 2020-12-04 14:42 | Emergency (ER) | payer MEDICAID, SELFPAY ==
[2020-12-04 14:48] VITALS: BP 132/85; PULSE 104; RESP 16; TEMP 36.8; O2SAT 99
--- NOTE | 2020-12-04 15:31 | W.ED.GENAD ---
Discharge Plan Disposition Patient Disposition: HOME Condition: Good Discharge Details Clinical Impression: Opiate addiction Primary Care Provider: Renetta,Local ED Provider: Melly Martinez Home Meds and New Rx's Prescriptions: New Narcan 4 mg/actuation spray,non-aerosol 1 spray intranasal Q2M Qty: 2 RF: 0 cephalexin 500 mg tablet 500 mg PO BID 7 Days Qty: 14 RF: 0 Discharge Instructions Additional Instructions: Please go to the [facility] tomorrow between 530 and 830 AM for intake and dosing of suboxone I have supplied you with a narcan prescription at your pharmacy you make take 50 mg of benadryl if you have another episode similar to before your arrival today, sometimes haldol and other medications can cause this type of reaction Medical Decision Making Patient appears well, she is alert, oriented, of decisional capacity in no acute distress. Throughout the entirety of her encounter COWS score is 9 and administered sublingual with improvement of patient's symptoms in the emergency room, she was observed for 45 minutes She was also given a dose of Keflex with 4 tablets applied for home She has a prescription pending as well for 7 days total of Keflex for urinary tract infection Her symptoms earlier I suspect were related to dyskinesias from receiving Haldol, she responded well to Benadryl and she will take at home as needed She or HI I think she is stable for discharge at this time She is given low threshold to return should she have new or worsening complaints All forms were faxed to [facility] and patient will come tomorrow morning for her next dose of sublingual soccer coach Luli presents to the emergency room and will need patient for appointment tomorrow Sara rn case mgr involved in referral source No clinical evidence of seizure on today's evaluation Discharge home in stable condition in stable Patient is alert and competent throughout the entirety of this evaluation Patient did not test positive for opiates on her tox screen is but she predominately in cocaine per patient I reviewed her visit from yesterday as well as her discharge information, will she did leave AGAINST MEDICAL ADVICE, I think she is stable for discharge home from the hospital today Differential Diagnosis Differential Diagnosis: Opiate withdrawal, urinary tract infection, EPS, mood disorder Medical Records Medical records reviewed: Yes I reviewed the patient's medical records. Lab Data Lab results reviewed: Yes I reviewed the patient's lab results. HPI 24-year-old female with of opiate addiction, IV drug abuse, presents with report involuntary movement. She was admitted to the hospital overnight and left AGAINST MEDICAL ADVICE this morning. Patient that she not use IV drugs for the past 48 hours aside from washes . She states that residue from her. She states that she is going through withdrawal. She denies any chest pain or shortness of breath. She denies any current auditory visual hallucination. She detox from opiate. 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 She denies homicidal ideation. She left this morning from the hospital as she did not feel as though she was improving with admission. She is feeling symptomatically improved with time she reports. She is no longer hallucinating per patient. She states that she was being treated for urinary tract infection but does not have a prescription for home. Denies chance of . Has pain and heroin predominantly. Last used 48 hours ago. General Date/Time Provider Initiated Documentation: 12/04/20 14:45. Related Data Home Medications Medication Instructions Recorded Confirmed cephalexin 500 mg PO BID 7 Days #14 tab 12/04/20 naloxone [Narcan] 1 spray INTRANASAL Q2M #2 ea 12/04/20 Previous Rx's Medication Instructions Recorded cephalexin 500 mg PO BID 7 Days #14 tab 12/04/20 naloxone [Narcan] 1 spray INTRANASAL Q2M #2 ea 12/04/20 Allergies Allergy/AdvReac Type Severity Reaction Status Date / Time No Known Allergies Allergy Unverified 12/03/20 16:43 General Stated Complaint: GenMedical BOSSMAN: 4 Review of Systems Narrative: Review of systems obtained x7 aside from where indicated in HPI [facility] Medical History (Updated 12/04/20 @ 16:39 by SERA Burgess) Opiate addiction Surgical History No significant past surgical history Family History (Updated 12/03/20 @ 22:31 by Willie Duque) Other Depression Social History (Updated 12/03/20 @ 22:33 by Willie Duque) Smoking/Tobacco Use Status: Current every day Tobacco Type: e-cigarettes Smoking risk assessment performed?: Yes Alcohol Intake: never Drug use: Occasionally Substance use type: heroin Details: used wash earlier today, has no used IV in 2 days Do you feel safe at home: Yes Do you feel safe in your relationship?: Yes Additional Social history: Living in [place] with her female hernesto, who also uses Not working. Graduated high school and started some college before getting deep into drugs. Parents live in [facility] Other: moist mucous membranes Eyes Pupils: PERRL Resp Effort & Inspection: normal respiratory effort Cardio Rate: tachycardic Rhythm: regular rhythm GI Other: No CVA tenderness, no abdominal pain Skin Other: pale Neuro General: patient alert and patient oriented x3 Cranial Nerves: CN's II-XI intact bilaterally Extrem Other: Noted bilateral upper extremity, without evience of secondary infection Psych Speech and Movement: speech and movement normal Affect: labile affect Thought Process: tangential Thought Content: no hallucinations and no homicidality Insight: fair Judgment: limited Course Vital Signs Vital signs: Vital Signs Temperature 36.8 C 12/04/20 14:48 Pulse 104 H 12/04/20 14:48 Respiratory Rate 16 12/04/20 14:48 Blood Pressure 132/85 12/04/20 14:48 Pulse Oximetry 99 12/04/20 14:48 Temperature 36.8 C 12/04/20 14:48 Temperature Source Skin 12/04/20 14:48 Pulse 104 H 12/04/20 14:48 Respiratory Rate 16 12/04/20 14:48 Respiratory Effort Non-Labored 12/04/20 14:58 Blood Pressure 132/85 12/04/20 14:48 Blood Pressure Position Sitting 12/04/20 14:48 Pulse Oximetry 99 12/04/20 14:48 Oxygen Delivery Method Room Air 12/04/20 14:48 Oxygen Flow Rate 0 12/04/20 14:48 Pain Level 0 12/04/20 14:48
[2020-12-04] MEDS: Cephalexin 500 MG CAP PO (15:58)
[2020-12-04 16:01] LABS: *AMPHETAMINES SCREEN URINE Negative (Negative); *BARBITURATES SCREEN URINE Negative (Negative); *BENZODIAZEPINES SCREEN URINE Negative (Negative); Cannabinoids THC Negative (Negative); Cocaine Screen,Urine Negative (Negative); METHADONE URINE SCREEN Negative (Negative); OPIATES URINE SCREEN Negative (Negative)
--- NOTE | 2020-12-04 16:01 | NUR.NOTE ---
Nursing Note: Luli power and recovery supervisor present in room
[2020-12-04 16:05] LABS: Tricyclic Antidepressants Negative (Negative)
--- NOTE | 2020-12-04 16:09 | NUR.NOTE ---
Nursing Note: Pt given warm blanket and apple juice as requested.
[2020-12-04 16:12] LABS: ALT 17 U/L (14-59); AST 20 U/L (15-37); Albumin 3.8 g/dL (3.4-5.0); Alkaline Phosphatase 110 U/L (46-116); Anion Gap 9.9 mmol/L (3-11); BUN 7 mg/dL (7-18); Bilirubin, Total 0.4 mg/dL (0.2-1.0); CO2 21.1 mmol/L (21.0-32.0); CREATININE 0.8 mg/dL (0.55-1.02); Calcium 9.5 mg/dL (8.5-10.1); Chloride 108 mmol/L (98-107); Glucose 92 mg/dL (74-106); Potassium 3.7 mmol/L (3.5-5.1); Sodium 139 mmol/L (136-145); Total Protein 8.2 g/dL (6.4-8.2)
[2020-12-04] MEDS: Buprenorphine/Naloxone 8 mg/2 mg FILM 1 EACH SL (16:30)
[2020-12-04 16:36] LABS: Abs Immature Grans 0.04 10^3/uL (0.0-0.06); Absolute Basophil Count 0.02 10^3/uL (0.0-0.2); Absolute Eosinophil Count 0.03 10^3/uL (0.0-0.7); Absolute Lymphocyte Count 1.43 10^3/uL (1.2-3.4); Absolute Monocyte Count 0.31 10^3/uL (0.1-0.8); Absolute Neutrophil Count 7.79 10^3/uL (1.2-6.7); Basophils % 0.2; Eosinophils % 0.3; HCT 34.4 % (36.0-46.0); HGB 11.7 g/dL (11.2-15.7); Immature Grans % 0.4; Lymphocytes % 14.9; MCH 28.4 pg (27.0-33.0); MCV 83.5 fL (80-95); MPV 8.3 fL (8.0-11.0); Monocytes % 3.2; Nucleated RBC 0 %; Platelet Count 272 10^3/uL (130-400); RBC 4.12 10^6/uL (3.93-5.22); RDW-SD 39.5 fL; WBC 9.62 10^3/uL (4.4-10.8)
[2020-12-04 16:47] LABS: ETHANOL BLOOD < 3.0 mg/dL (<3)
[2020-12-04] MEDS: LORazepam 1 MG TAB PO (17:15)
--- NOTE | 2020-12-04 17:42 | NUR.NOTE ---
Nursing Note: awaiting ride home, pt aware.
[2020-12-04 17:45] VITALS: BP 129/74; PULSE 88; RESP 20; TEMP 37.3; O2SAT 100
[2020-12-04] MEDS: Cephalexin 500 MG CAP, 4 CAPS/BTL PO (17:48)
[2020-12-07 09:05] LABS: HBs Antibody, Quant 4.4 mIU/mL (See Note); Hepatitis B Surface Ab Negative (See Note)
[2020-12-07 09:48] LABS: HIV-1/2 Ag & Ab Screen Negative (Negative)
[2020-12-07 11:24] LABS: Hepatitis A Antibody IgM Negative (Negative); Hepatitis B Core Antibody Negative (Negative); Hepatitis B surface Ag Negative (Negative); Hepatitis C Ab w Rflx HCV PCR Reactive (Negative)
[2020-12-09 15:17] LABS: HCV RNA Detection Quantitative 20673 IU/mL (Undetected); HCV RNA Qualitative Detected (Undetected)
== END 2020-12-04 17:47 | disposition home or self-care (01) ==
PROVIDERS: Emergency Provider Physician Assistant
DX: F11.20 Opioid dependence, uncomplicated (principal)
CPT/HCPCS: 36415; 80053; 80307; 81025; 86704; 86706; 86709; 86803; 87340; 87389; 87522; 99284; 80320; 85025; 99283

== ENCOUNTER 2020-12-05 14:51 | Inpatient (IN) | payer MEDICAID, SELFPAY ==
[2020-12-05 15:01] VITALS: BP 117/77; PULSE 115; RESP 15; TEMP 38.3; O2SAT 97
--- NOTE | 2020-12-05 15:20 | ED.GENADUL_ITS ---
Discharge Plan Disposition Patient Disposition: [facility] INPATIENT Condition: Stable Discharge Details Chief Complaint: PsychEval Clinical Impression: Auditory hallucinations, Fever Primary Care Provider: [facility] ED Provider: Indra Lal Home Meds and New Rx's Prescriptions: No Action Narcan 4 mg/actuation spray,non-aerosol 1 spray intranasal Q2M Qty: 2 RF: 0 cephalexin 500 mg tablet 500 mg PO BID 7 Days Qty: 14 RF: 0 Medical Decision Making 24-year-old female now with her third visit to the hospital over 3 days time. She was admitted to the hospital on the evening of December 03 for hallucinations, drug use, UTI. She signed out AMA main was seen in the emergency department yesterday. She was started on buprenorphine with a plan for her to follow-up at local clinic today. She did not make this appointment. Patient states to me she has been using IV heroin, crack cocaine, methamphetamine. States her last real use was 2 days ago. She states she feels psychotic as if there is a demon inside her. She feels anxious. At times she hears voices that tell her she is . She says that she would consider inpatient psychiatric placement. States that previously she had taken Seroquel and SSRI after going through drug rehabilitation in [place]. She states she has had previous psychotic episodes in association with drug use, particularly stimulants like methamphetamine and cocaine. She arrives to the ER with a temperature of 38.3, resting tachycardia of 115. Her exam reveals erythema overlying cutaneous injection sites over the right hand and left forearm.. She has recently had a urinary tract infection during her admission. Must also consider cellulitis as well as endocarditis in this IV drug user. Patient IV access established screening blood work, blood cultures, urinalysis obtained. CBC reveals white count 11, hematocrit 35, platelets 253. Sodium 138, potassium 3.2, chloride 102, bicarb 22, BUN 7, creatinine 0.9. AST 19, ALT 23. CXR: No acute findings. Patient defervesced following ibuprofen. She may have fever due to persistent urinary tract infection or developing cellulitis. Cannot rule out endocarditis given her IV drug use. Given the undifferentiated fever, mild psychotic symptoms, I do feel she merits admission for further observation and once medically cleared, consideration of further psychiatric screening. Discussed with Dr. Douglas I will add broad-spectrum antibiotics and we will admit the patient for further management. HPI General Mode of arrival: EMS . Date/Time Provider Initiated Documentation: 12/05/20 15:00 . Limitations to Documentation: no limitations . Information obtained by: patient and EMS . History of Present Illness 24 year old F presents to the emergency department with the chief complaint of I feel psychotic similar to previous, described as similar to prior episodes, Quality is described as constant, and is localized to the head. Patient reports no radiation. Patient started experiencing this day(s) and it has been constant. No relieving factors improve symptom(s), No exacerbating factors reported . Patient notes loss of appetite. Patient did receive the following treatments prior to arrival, none Related Data Home Medications Medication Instructions Recorded Confirmed cephalexin 500 mg PO BID 7 Days #14 tab 12/04/20 12/05/20 naloxone [Narcan] 1 spray INTRANASAL Q2M #2 ea 12/04/20 12/05/20 Previous Rx's Medication Instructions Recorded cephalexin 500 mg PO BID 7 Days #14 tab 12/04/20 naloxone [Narcan] 1 spray INTRANASAL Q2M #2 ea 12/04/20 Allergies Allergy/AdvReac Type Severity Reaction Status Date / Time No Known Allergies Allergy Unverified 12/05/20 15:00 General Stated Complaint: PsychEval BOSSMAN: 3 Review of Systems Narrative: Seen in the emergency department yesterday. Continues to use IV dr piedra. Had not noticed fever. No thoughts of harming others. Has had some depression and poor sleep. Denies to me suicidal plan. [facility] Medical History Opiate addiction Surgical History No significant past surgical history Family History Other Depression Social History Smoking/Tobacco Use Status: Current every day Tobacco Type: e-cigarettes Smoking risk assessment performed?: Yes Alcohol Intake: never Drug use: Occasionally Substance use type: heroin Details: used wash earlier today, has no used IV in 2 days Do you feel safe at home: Yes Do you feel safe in your relationship?: Yes Additional Social history: Living in [place] with her female fianthony?, who also uses Not working. Graduated high school and started some college before getting deep into drugs. Parents live in [place] Exam Narrative Exam Narrative: GEN: awake, alert, oriented 3. Pleasant, well groomed, interactive. HEAD: Normocephalic, atraumatic ENT: Mucous membranes moist, oropharynx unremarkable, External ear exam unremarkable EYES: PERRL, EOMI NECK: Full ROM, no GLENROY, no menigismus CHEST/RESP: Nontender, clear to auscultation bilateral, no wheeze/rhonchi/rales CARDIOVASCULAR: Regular and tachycardic, no murmur, rub stanley. 2+ Rad pulse bilateral ABDOMEN: Soft, nontender, no mass. +Bowel sounds EXT: Full ROM, no edema, track reyna bilateral hands, left forearm and AC fossa. There is overlying erythema on the dorsum of the right hand and the left AC fossa. Neuro: Grossly normal neurologic exam, conversant, interactive. Psych: Speech fluent, thoughts congruent, affect anxious Course Vital Signs Vital signs: Vital Signs Temperature 38.3 C H 12/05/20 15:01 Pulse 115 H 12/05/20 15:01 Respiratory Rate 15 12/05/20 15:01 Blood Pressure 117/77 12/05/20 15:01 Pulse Oximetry 97 12/05/20 15:01 Temperature 38.3 C H 12/05/20 15:01 Pulse 115 H 12/05/20 15:01 Respiratory Rate 15 12/05/20 15:01 Respiratory Effort Non-Labored 12/05/20 14:57 Blood Pressure 117/77 12/05/20 15:01 Pulse Oximetry 97 12/05/20 15:01 Oxygen Delivery Method Room Air 12/05/20 15:01 Oxygen Flow Rate 0 12/05/20 15:01 Lab/Test Results Lab/Test Results: 12/05/20 15:17 Blood Blood Culture - Pending 12/05/20 15:17 Blood Blood Culture - Pending
--- NOTE | 2020-12-05 15:54 | NUR.NOTE ---
ate sandwich and drinking beverage
--- NOTE | 2020-12-05 15:55 | NUR.NOTE ---
reports to Dr. Lal she is suicidal, one to one just outside of room providing constant observation
[2020-12-05 15:56] LABS: Abs Immature Grans 0.06 10^3/uL (0.0-0.06); Absolute Basophil Count 0.03 10^3/uL (0.0-0.2); Absolute Monocyte Count 0.23 10^3/uL (0.1-0.8); Basophils % 0.3; HCT 35.1 % (36.0-46.0); HGB 11.8 g/dL (11.2-15.7); Immature Grans % 0.5; Lymphocytes % 6.3; MCH 28.2 pg (27.0-33.0); MCHC 33.6 % (32.0-36.0); MPV 8.1 fL (8.0-11.0); Neutrophils % 90.9; Nucleated RBC 0 %; Platelet Count 253 10^3/uL (130-400); RBC 4.18 10^6/uL (3.93-5.22); RDW 12.8 % (11.7-14.6); RDW-SD 39.2 fL; WBC 11.34 10^3/uL (4.4-10.8)
[2020-12-05 16:02] LABS: Absolute Lymphocyte Count 0.71 10^3/uL (1.2-3.4); Absolute Neutrophil Count 10.31 10^3/uL (1.2-6.7)
[2020-12-05] MEDS: LORazepam 2 MG/ML VIAL 1 MG IVP ×2 (16:09→17:18)
[2020-12-05 16:13] LABS: ALT 23 U/L (14-59); AST 19 U/L (15-37); Albumin 4.2 g/dL (3.4-5.0); Alkaline Phosphatase 124 U/L (46-116); Anion Gap 13.6 mmol/L (3-11); BUN 7 mg/dL (7-18); Bilirubin, Total 0.6 mg/dL (0.2-1.0); CO2 22.4 mmol/L (21.0-32.0); CREATININE 0.9 mg/dL (0.55-1.02); Calcium 9.6 mg/dL (8.5-10.1); Chloride 102 mmol/L (98-107); Glucose 112 mg/dL (74-106); Magnesium 1.7 mg/dL (1.8-2.4); Potassium 3.2 mmol/L (3.5-5.1); Sodium 138 mmol/L (136-145); Total Protein 8.9 g/dL (6.4-8.2)
[2020-12-05 16:16] LABS: Bilirubin Negative (Negative); Blood Negative (Negative); Clarity Clear (Clear); Glucose Negative (Negative); Ketones 40 mg/dL (Negative); Leukocyte Esterase Negative (Negative); Nitrite Negative (Negative); Specific Gravity 1.025 (1.005-1.025); Urobilinogen 0.2 EU/dL (Up TO 0.2)
[2020-12-05 16:28] LABS: *AMPHETAMINES SCREEN URINE Negative (Negative); *BARBITURATES SCREEN URINE Negative (Negative); *BENZODIAZEPINES SCREEN URINE Negative (Negative); Bacteria Rare HPF (Negative); C & S Indicated? Yes; Cannabinoids THC Negative (Negative); Casts Negative LPF (Negative); Cocaine Screen,Urine Negative (Negative); Crystals Negative HPF (Negative); Epithelial Cells Rare HPF (Negative); METHADONE URINE SCREEN Negative (Negative); Mucus Negative (Negative); OPIATES URINE SCREEN Negative (Negative); RBC Negative HPF (0-2)
[2020-12-05 16:29] LABS: Salicylate < 2.8 mg/dL (<2.8)
--- NOTE | 2020-12-05 16:30 | DI.RAD_ITS ---
EXAM: XR CHEST 2V PA LATERAL CLINICAL HISTORY: fever TECHNIQUE: 2D digital imaging was performed. COMPARISON: CR,XR XR CHEST 2V PA LATERAL from 12/03/2020 FINDINGS: The heart is not enlarged. The lungs are clear and well expanded. No pleural effusion seen. Mediastin al contours appear intact. IMPRESSION: Normal chest. RADIATION DOSE DELIVERED: Total DLP
[2020-12-05 16:34] LABS: Acetaminophen < 2 ug/mL (10-30)
[2020-12-05 16:34] LABS: Tricyclic Antidepressants Positive (Negative)
[2020-12-05 16:35] LABS: ETHANOL BLOOD < 3.0 mg/dL (<3)
[2020-12-05 16:45] VITALS: BP 109/72; PULSE 108; RESP 15; TEMP 37.7; O2SAT 98
--- NOTE | 2020-12-05 16:59 | DI.VRAD_ITS ---
PROCEDURE INFORMATION: Exam: XR Chest Exam date and time: 12/05/2020 4:56 PM Age: 24 years old Clinical indication: Fever TECHNIQUE: Imaging protocol: XR of the chest Views: 2 views. COMPARISON: CR XR CHEST 2V PA LATERAL 12/03/2020 7:33 PM FINDINGS: Lungs: Unremarkable. No consolidation. Pleural spaces: Unremarkable. No pleural effusion. No pneumothorax. Heart/Mediastinum: Unremarkable. No cardiomegaly. Bones/joints: Unremarkable. IMPRESSION: No acute findings. Dictated and Authenticated by: Nikole Borjas MD. Ordering:MAGED Burrell MD
[2020-12-05 17:01] LABS: Source Nasal/Nares
[2020-12-05 17:17] LABS: ESR 26 mm//hr (0-20)
[2020-12-05 17:22] LABS: C-Reactive Protein 5.69 mg/dL (0.0-0.3)
[2020-12-05] MEDS: PIPERACILLIN/TAZO 3.375 GM in Normal Saline 50 ML IVPB ×2 (17:22→23:25)
--- NOTE | 2020-12-05 17:23 | NUR.NOTE ---
ordered dinner, eating dinner
[2020-12-05 17:40] LABS: COVID-19 PCR Negative (Negative)
[2020-12-05] MEDS: VANCOMYCIN 1,000 MG in Normal Saline 250 ML 167 MG IVPB (17:56)
[2020-12-05 18:21] VITALS: BP 114/63; PULSE 113; RESP 16; TEMP 38.1; O2SAT 98
--- NOTE | 2020-12-05 19:09 | HPE_ITS ---
Date of service: 12/05/20 Time of Service: 19:09 Assessment and Plan Assessment and plan (1) Fever: Start date: 12/05/20 Status: Acute Assessment and plan: This is a 24-year-old lady with IV drug use reported to the ED again with auditory hallucinations but found to have a fever with some erythema over her IV track reyna and consideration of bacteremia with possible endocarditis. Patient had blood cultures x2 and will be started on vancomycin with Zosyn IV with follow-up of blood cultures and exam. Consider echocardiogram. Qualifiers: Fever type: due to other condition Qualified Code(s): R50.81 - Fever presenting with conditions classified elsewhere (2) IV drug user: Status: Chronic Assessment and plan: Patient does have opioid addiction with other drug use with some consideration of opiate withdrawal with her anxiety respond to Ativan. I will continue Ativan as needed but initiate clonidine 0.1 mg every 2 hours for anxiety and dysphoria. Patient did take some clonidine early during her hospitalization and it did help her auditory hallucinations. I encouraged to decrease use of Ativan. She will continue on Suboxone which was given tonight and can be confirmed in the morning with continuation and eventual outpatient Suboxone treatment with [facility]. (3) UTI (urinary tract infection): Start date: 12/03/20 Status: Acute Assessment and plan: Patient had UTI with her initial hospitalization 12/03/2020 and will continue Zosyn with follow-up urine culture. Qualifiers: Hematuria presence: without hematuria Urinary tract infection type: acute cystitis Qualified Code(s): N30.00 - Acute cystitis without hematuria (4) Opiate addiction: Status: Chronic Assessment and plan: Continue clonidine as discussed under IV drug use continue Suboxone daily. Long-term she needs a follow-up with [facility]. 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 Continue the same but long-term she needs to follow-up with psychiatry and consider outpatient versus inpatient psychiatric reevaluation and treatment for her psychosis. If this is drug- induced psychosis treatment of her drug abuse and opioid addiction would be the only treatment needed. She also is self treating and long-term psychiatric care would still be helpful. History of Present Illness History of Present Illness Chief Complaint: Hallucinations with fever and a IV drug user. Narrative: This is a 24-year-old female patient who is an IV drug user admitting to using heroin, crack cocaine and amphetamines. She was hospitalized December 03, 2020 and left AMA then returned the next day to the ED and was started on Suboxone for treatment of her opioid addiction with plans to follow-up at the [facility] the morning of admission but she did not have gas money for the ride. She reported again to the ED for evaluation for hallucinations which were auditory with voices telling her that she was . She would have these hallucinations more often when using amphetamines or stimulants as cocaine. She said that her last real use of drugs was before her December 03 admission. In the ED she was found to have erythema over her IV track reyna and fever with worsening auditory hallucinations. She was started on IV antibiotic therapy for possible bacteremia and endocarditis though she had no heart murmur. Blood cultures were obtained. She was treated for UTI recently when admitted December 03, 2020 and compliance is questionable. She was started on Zosyn with vancomycin after blood cultures were obtained and is being admitted for her fever and for evaluation and treatment of her opioid withdrawal and auditory hallucinations. She is very thin but states that she has no eating disorder and has had problems with psychiatry and drug abuse problems being treated in [place] for rehabilitation in the past. She does live locally with another person and as stated she does not have an iPhone or money for gas which inhibits some of her medical care activity. Review of Systems Narrative: 13 point review of systems otherwise unrevealing or stable. [facility] Medical History Opiate addiction Surgical History No significant past surgical history Family History Other Depression Social History Smoking/Tobacco Use Status: Current every day Tobacco Type: e-cigarettes Smoking risk assessment performed?: Yes Alcohol Intake: never Drug use: Occasionally Substance use type: heroin Details: used wash earlier today, has no used IV in 2 days Do you feel safe at home: Yes Do you feel safe in your relationship?: Yes Additional Social history: Living in [place] with her female anders?, who also uses Not working. Graduated high school and started some college before getting deep into drugs. Parents live in [facility] Home Medications and Allergies Allergies Allergy/AdvReac Type Severity Reaction Status Date / Time No Known Allergies Allergy Unverified 12/05/20 15:00 Home Medications Medication Instructions Recorded Confirmed Type cephalexin 500 mg PO BID 7 Days #14 tab 12/04/20 12/05/20 Rx naloxone [Narcan] 1 spray INTRANASAL Q2M #2 ea 12/04/20 12/05/20 Rx Exam Narrative Exam Narrative: General: Patient appears appropriate for age, well rested and in no acute distress at the time that I examined her with the patient sleeping and not being awakened during the night. When she was awake she has been on clonidine with some improvement of her hallucinations. She also was receiving Ativan. She is then but not cachectic. HEENT: Normocephalic, eyes with pupils equal and reactive to light symmetrically, extraocular movement intact and sclera anicteric. Oral mucosa moist with fair dentition. Oropharynx without erythema. Neck: Supple without JVD. Back: Stooped posture without CVA tenderness. Lungs: Clear to auscultation and no dullness to percussion with no focalizing rales or rhonchi with normal inspiratory aeration. No expiratory wheeze. Heart: Regular rate and rhythm with no murmurs or gallops. No rubs. Breasts: Exam deferred. Abdomen: Scaphoid contour, soft and nontender to palpation with no palpable hepatosplenomegaly. Genitalia/rectal: Exam deferred. Extremities: Without clubbing, cyanosis or edema. Peripheral pulses intact. Skin: Normal color, warm and dry. Multiple tattoos with extensive tattoos over right arm. Some IV needle track reyna over upper extremities with associated erythema. No induration over these areas. Neuro: Cranial nerves II through XII grossly intact, no focalized motor deficits. Psych: Flattened affect but good eye contact. Depressed mood. No abnormal thought processes at the time of my exam the patient was claiming auditory hallucinations. Voices were speaking her telling her that she was . Remote and recent memory appear to be grossly intact. Results Labs Result diagrams: 12/06/20 06:20 12/06/20 06:20 Labs: Laboratory Results - last 24 hr 12/05/20 12/05/20 12/05/20 15:40 15:40 15:40 WBC RBC Hgb Hct MCV MCH MCHC RDW Plt Count MPV Immature Gran % Neutrophils % Lymphocytes % Monocytes % Eosinophils % Basophils % Nucleated RBC % Absolute Neutrophils Absolute Lymphocytes Absolute Monocytes Absolute Eosinophils Absolute Basophils ESR VBG Lactate 1.0 Sodium 138 Potassium 3.2 L Chloride 102 Carbon Dioxide 22.4 Anion Gap 13.6 H BUN 7 Creatinine 0.9 Estimated GFR/1.73 m2 >= 60.00 Glucose 112 H Calcium 9.6 Magnesium 1.7 L Total Bilirubin 0.6 AST 19 ALT 23 Alkaline Phosphatase 124 H C-Reactive Protein Total Protein 8.9 H Albumin 4.2 Urine Color Urine Clarity Urine pH Ur Specific [place] Urine Protein Urine Ketones Urine Blood Urine Nitrite Urine Bilirubin Urine Urobilinogen Ur Leukocyte Esterase Urine RBC Urine WBC Ur Epithelial Cells Urine Crystals Urine Bacteria Urine Casts Urine Mucus Ur Culture Indicated? Urine Glucose Salicylates < 2.8 Urine Opiates Screen Urine Methadone Screen Acetaminophen < 2 Ur Barbiturates Screen Ur Tricyclics Screen Ur Amphetamines Screen U Benzodiazepines Scrn Urine Cocaine Screen Ur THC Screen Ethyl Alcohol < 3.0 COVID-19 Source SARS-CoV-2 (PCR) 12/05/20 12/05/20 12/05/20 15:40 15:41 15:41 WBC 11.34 H RBC 4.18 Hgb 11.8 Hct 35.1 L MCV 84.0 MCH 28.2 MCHC 33.6 RDW 12.8 Plt Count 253 MPV 8.1 Immature Gran % 0.5 Neutrophils % 90.9 Lymphocytes % 6.3 Monocytes % 2.0 Eosinophils % 0.0 Basophils % 0.3 Nucleated RBC % 0 Absolute Neutrophils 10.31 H Absolute Lymphocytes 0.71 L Absolute Monocytes 0.23 Absolute Eosinophils 0.00 Absolute Basophils 0.03 ESR 26 H VBG Lactate Sodium Potassium Chloride Carbon Dioxide Anion Gap BUN Creatinine Estimated GFR/1.73 m2 Glucose Calcium Magnesium Total Bilirubin AST ALT Alkaline Phosphatase C-Reactive Protein 5.69 H Total Protein Albumin Urine Color Urine Clarity Urine pH Ur Specific [place] Urine Protein Urine Ketones Urine Blood Urine Nitrite Urine Bilirubin Urine Urobilinogen Ur Leukocyte Esterase Urine RBC Urine WBC Ur Epithelial Cells Urine Crystals Urine Bacteria Urine Casts Urine Mucus Ur Culture Indicated? Urine Glucose Salicylates Urine Opiates Screen Urine Methadone Screen Acetaminophen Ur Barbiturates Screen Ur Tricyclics Screen Ur Amphetamines Screen U Benzodiazepines Scrn Urine Cocaine Screen Ur THC Screen Ethyl Alcohol COVID-19 Source SARS-CoV-2 (PCR) 12/05/20 12/05/20 12/05/20 16:06 16:06 16:55 WBC RBC Hgb Hct MCV MCH MCHC RDW Plt Count MPV Immature Gran % Neutrophils % Lymphocytes % Monocytes % Eosinophils % Basophils % Nucleated RBC % Absolute Neutrophils Absolute Lymphocytes Absolute Monocytes Absolute Eosinophils Absolute Basophils ESR VBG Lactate Sodium Potassium Chloride Carbon Dioxide Anion Gap BUN Creatinine Estimated GFR/1.73 m2 Glucose Calcium Magnesium Total Bilirubin AST ALT Alkaline Phosphatase C-Reactive Protein Total Protein Albumin Urine Color Yellow Urine Clarity Clear Urine pH 6.0 Ur Specific [place] 1.025 Urine Protein 30 H Urine Ketones 40 H Urine Blood Negative Urine Nitrite Negative Urine Bilirubin Negative Urine Urobilinogen 0.2 Ur Leukocyte Esterase Negative Urine RBC Negative Urine WBC 5-10 Ur Epithelial Cells Rare Urine Crystals Negative Urine Bacteria Rare Urine Casts Negative Urine Mucus Negative Ur Culture Indicated? Yes Urine Glucose Negative Salicylates Urine Opiates Screen Negative Urine Methadone Screen Negative Acetaminophen Ur Barbiturates Screen Negative Ur Tricyclics Screen Positive A Ur Amphetamines Screen Negative U Benzodiazepines Scrn Negative Urine Cocaine Screen Negative Ur THC Screen Negative Ethyl Alcohol COVID-19 Source Nasal/nares SARS-CoV-2 (PCR) Negative Last Vital Signs Temp 38.1 C H 12/05/20 18:21 Pulse 113 H 12/05/20 18:21 Resp 16 12/05/20 18:21 BP 114/63 12/05/20 18:21 Pulse Ox 98 12/05/20 18:21 COVID-19 Screening Have you, or household traveled for leisure in last 14 days?: No Had IN PERSON contact w/suspected or confirmed C-19 person: No
[2020-12-05] MEDS: Buprenorphine/Naloxone 8 mg/2 mg FILM 1 EACH SL (19:23)
[2020-12-05] MEDS: LORazepam 1 MG TAB PO (19:38)
[2020-12-05 21:19] LABS: INR 1.1 (0.9-1.1); Prothrombin Time 10.9 sec (9.3-11.0)
[2020-12-05] MEDS: Normal Saline 1,000 ML 150 ML IV (22:13)
[2020-12-05 23:55] VITALS: BP 110/70; PULSE 106; RESP 16; TEMP 37.7; O2SAT 98
[2020-12-06] VITALS (8 sets, daily range): BP systolic 99–115; BP diastolic 60–70; PULSE 52–100; RESP 16–17; TEMP 36.3–37.5; O2SAT 97–100
--- NOTE | 2020-12-06 | DI.RAD_ITS ---
EXAM: XR HAND LT COMPLETE CLINICAL HISTORY: concerned about retained broken needle in L hand. TECHNIQUE: 2D digital imaging was performed. COMPARISON: No exams were available for comparison FINDINGS: There is no evidence of fracture or dislocation. Bone density is normal. On the dorsal aspect of the wrist there is a thin metallic foreign body consistent with part of the n eedle. This measures 8.7 millimeters length and is located just dorsal to the distal carpal row at a pproximately the junction between arms are superficial to the capitate-hamate junction. No radiograp hic evidence of osteomyelitis. IMPRESSION: There is a metallic foreign body needle located dorsally at the wrist level. This is just dorsal to the capitate-hamate. DATA REPOSITORY: RADIATION DOSE DELIVERED:
--- NOTE | 2020-12-06 | DI.RAD_ITS ---
EXAM: XR LUMBAR SPINE COMPLETE CLINICAL HISTORY: back pain. TECHNIQUE: 2D digital imaging was performed. COMPARISON: No exams were available for comparison FINDINGS: There is no evidence of fracture or listhesis. No pars defects. L5-S1 disc space is small but this appears to be related to an element of sacralization of the L5 segment. Other disc spaces exhibit no rmal height. Facet joints appear unremarkable. No scoliosis. No obvious radiographic evidence of o steomyelitis. IMPRESSION: Small L5-S1 disc space. This is related to sacralization of the L5 segment. No other significant radiographic findings. DATA REPOSITORY: RADIATION DOSE DELIVERED:
[2020-12-06] MEDS: cloNIDine 0.1 MG TAB PO ×6 (00:58→20:58)
[2020-12-06] MEDS: VANCOMYCIN/WATER (PEG) 1 GM/200 ML BAG IV (06:28)
[2020-12-06 07:25] LABS: Abs Immature Grans 0.04 10^3/uL (0.0-0.06); Absolute Basophil Count 0.04 10^3/uL (0.0-0.2); Absolute Eosinophil Count 0.44 10^3/uL (0.0-0.7); Absolute Monocyte Count 0.67 10^3/uL (0.1-0.8); Absolute Neutrophil Count 7.42 10^3/uL (1.2-6.7); Basophils % 0.4; HCT 29.3 % (36.0-46.0); HGB 9.6 g/dL (11.2-15.7); Immature Grans % 0.4; Lymphocytes % 21.1; MCH 27.6 pg (27.0-33.0); MCHC 32.8 % (32.0-36.0); MCV 84.2 fL (80-95); MPV 8.5 fL (8.0-11.0); Monocytes % 6.1; Nucleated RBC 0 %; Platelet Count 225 10^3/uL (130-400); RBC 3.48 10^6/uL (3.93-5.22); RDW 13.2 % (11.7-14.6); RDW-SD 40.9 fL; WBC 10.91 10^3/uL (4.4-10.8)
[2020-12-06 07:48] LABS: ALT 21 U/L (14-59); AST 10 U/L (15-37); Albumin 2.9 g/dL (3.4-5.0); Alkaline Phosphatase 78 U/L (46-116); Anion Gap 8.7 mmol/L (3-11); BUN 6 mg/dL (7-18); Bilirubin, Total 0.6 mg/dL (0.2-1.0); CO2 25.3 mmol/L (21.0-32.0); CREATININE 0.7 mg/dL (0.55-1.02); Calcium 8.5 mg/dL (8.5-10.1); Chloride 108 mmol/L (98-107); Glucose 103 mg/dL (74-106); Potassium 3.6 mmol/L (3.5-5.1); Sodium 142 mmol/L (136-145); Total Protein 6.5 g/dL (6.4-8.2)
[2020-12-06] MEDS: LORazepam 1 MG TAB PO ×2 (08:11→20:58)
[2020-12-06] MEDS: Normal Saline Flush 10 ML SYR IVP ×2 (09:11→15:15)
[2020-12-06] MEDS: Normal Saline 1,000 ML 150 ML IV (10:02)
[2020-12-06] MEDS: PIPERACILLIN/TAZO 3.375 GM in Normal Saline 50 ML IVPB ×3 (10:09→23:59)
[2020-12-06 10:35] LABS: C-Reactive Protein 8.94 mg/dL (0.0-0.3); Magnesium 1.9 mg/dL (1.8-2.4)
[2020-12-06 10:59] LABS: Procalcitonin 10.5 ng/mL
[2020-12-06] MEDS: Buprenorphine/Naloxone 8 mg/2 mg FILM 1 EACH SL (12:26)
--- NOTE | 2020-12-06 13:33 | PHA.REVIEW ---
Pharmacy Admission Review - Admission Clinical Review (Last Reviewed 12/05/20 @ 19:09 by Navid Douglas) Fever (Acute) UTI (urinary tract infection) (Acute) No Known Allergies Allergy (Unverified 12/05/20 15:00) Height 5 ft 4 in Weight 44.5 kg FEVER, IV DRUG USE, ?UTI, HALLUCINATIONS - Comments Comments/Follow Ups: Suboxone intiated in the ER, will be maintained while inpatient but will need to seek followup with [facility] or general provider for subsequent dosing at discharge. Lost IV access, Midline access obtained today 12/06/20. Micro blood preliminary positive for Gram neg ava, on Vanco/Zosyn. Urine no growth, did have a positive urine culture as outpt on 12/03/20. Fever on admission, currently Afebrile. Will need Echo to r/o Endocarditis. - Renal Dosing Renal Dosing: BUN 6 mg/dL (7-18) L 12/06/20 06:20 Creatinine 0.7 mg/dL (0.55-1.02) 12/06/20 06:20 Medications needing adjustments: Reviewed (CrCl~77ml/min) - Anticoagulation Anticoagulation: Hgb 9.6 g/dL (11.2-15.7) L D 12/06/20 06:20 Hct 29.3 % (36.0-46.0) L 12/06/20 06:20 Plt Count 225 10^3/uL (130-400) 12/06/20 06:20 INR 1.1 (0.9-1.1) 12/05/20 15:40 Creatinine 0.7 mg/dL (0.55-1.02) 12/06/20 06:20 DVT Prohphylaxis: N/A Therapeutic Anticoagulation: N/A - Opiate Usage Evaluate Pain Scale/Pains Meds: Reviewed (Suboxone with prn bowel meds, liquid stools) - Relevant Labs ESR 26 mm//hr (0-20) H 12/05/20 15:41 Sodium 142 mmol/L (136-145) 12/06/20 06:20 Potassium 3.6 mmol/L (3.5-5.1) 12/06/20 06:20 Chloride 108 mmol/L (98-107) H 12/06/20 06:20 Magnesium 1.9 mg/dL (1.8-2.4) 12/06/20 06:20 C-Reactive Protein 8.94 mg/dL (0.0-0.3) H 12/06/20 06:20 Electrolytes, C-Reactive P, ESR: Reviewed (Procalcitonin 10.5, C-reactive increasing, WBC 10.91, H/H down 9.6/29.3) - DM Control DM Control: Glucose 103 mg/dL (74-106) 12/06/20 06:20 Insulin Dosing: N/A - Heart Failure/KS EF%, THU's, B-Blockers, Diuretics: Reviewed (Clonidine) - BP Control BP Control: Blood Pressure 99/67 Blood Pressure 99/60 Blood Pressure 99/66 Blood Pressure 108/62 - Qtc Review If Elevated: N/A - Home Meds Relevent Home Meds Not ordered & why?: Cephalexin for UTI as outpt (on IV antibiotics) - Current meds Current Medication Order Review: Reviewed (Clonidine/Lorazepam for opiate withdrawl and anxiety) - Comments Comments/Follow Ups: Vanco per protocol, trough ordered for 12/07/20 @ 0500, trend procalcitonin, WBC, C-reactive protein Antibiotic Activity - Pharmacy Antibiotic Review Pharmacy Antibiotic Activity: C/S review (Positive blood cultures) - Antibiotic Information Antibiotic Review Info: Vanco/Zosyn for positive blood cultures
--- NOTE | 2020-12-06 14:25 | PDOC.CMIN ---
- If Service Date Differs Date of service: 12/06/20 Time of Service: 14:25 Care Management Initial Assess REASON FOR HOSPITALIZATION:: Fever PAST MEDICAL HISTORY/PAST SURGICAL HISTORY:: edical History . Opiate addiction. Surgical History . No significant past surgical history PREVIOUS FUNCTIONAL STATUS/SOCIAL/FAMILY SUPPORTS:: Rhonda lives in an apartment in [place] with her diann Casper. She has recently relocated (8 months ago) to [place] from [place]. Rhonda has 2 siblings, a brother and a sister, both older than she is and who live out of state. Her mother lives in [place] where Rhonda was raised. Rhonda in currently unemployed, uninsured and has no PCP. She is independent at baseline and has transportation available to her. CURRENT FUNCTIONAL STATUS:: Rhonda was sitting up inbed, crying , when CM met with her. When asked what was wrong she indicated that Dr. Duval had jusy informed her that she has a blood stream infection and that she will have to remain in the hospital. Rhonda shared that she moved to [place] 8 months ago because her diann's family has a restaurant here. She hopes to find a job when she is well. On Monday Rhonda presented to the ED seeking treatment for drug addiction. She was started on suboxone through the ED's program but failed to keep her Monday morning appointment with [facility]. She returned to the ED yesterday when she became febrile. Rhonda stated that she has been hospitalized several times in [place] for mental health issues (she used the term psychosis) at [facility] and a couple of times for medical problems at [facility] and at [facility] in [place], [place]. She confirmed that she is currently receiving suboxone at [facility] as an inpatient and will continue at [facility] when discharged.. ADVANCE DIRECTIVES:: none on file Has patient been provided with info about the portal/API?: Yes Did the patient sign up for the portal?: No CODE STATUS:: Full Code INSURANCE COVERAGE / FINANCIAL ISSUES:: none CURRENT HOME/COMMUNITY SERVICES/EQUIPMENT:: none currently although plans to attend [facility] for substance use treatment. PRIMARY CARE PHYSICIAN:: None but would like to establish with Dr. Duque POTENTIAL DISCHARGE NEEDS:: PCP, insurance PATIENT/FAMILY EDUCATION NEEDS:: Review of discharge instructions, limitations, follow up rubén, Ask Me Three TRANSPORTATION:: via privare vehiclew with friend PLAN:: Rhonda will likely be discharged home when medically cleared by provider. In the presence of gram negative bacteremia, it is possible she will require predatory animal exterminator IV antibiotic therapy. Several options for treatment may be available, depending on the organism, source and specific regimen required. Rhonda will follow up with the PCP assigned and transport with her tanikae. has sent a referral to [facility] for insurance and other possible community supports.CM will continue to support Rhonda and assess for ongoing discharge planning concerns.
[2020-12-06] MEDS: VANCOMYCIN 750 MG in Normal Saline 250 ML 250 MG IV ×2 (14:40→21:33)
--- NOTE | 2020-12-06 14:45 | PGE_ITS ---
Date of Service Date of service: 12/06/20 Time of Service: 14:45 Assessment and Plan Assessment and plan (1) Gram negative sepsis: Status: Acute Assessment and plan: Blood cx positive for GNR. Repeat blood cultures in am. Continue vanco/zosyn. Trend procalcitonin/CRP. Obtain echo to r/o endocarditis. Obtain XR L hand to clarify location of retained needle- may need to come out as the patient needs an MRI of LS spine to r/o OM/epidural abscess. (2) Opiate addiction: Status: Chronic Assessment and plan: The patient is interested in pursuing follow up with [facility]. We will continue suboxone initiated in the ED. The patient has a recovery agent assigned to her. 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 The patient was very clear that her prior psychiatric hospitalizations came to this same diagnosis. Monitor for hallucinations. (4) IV drug user: Status: Chronic Assessment and plan: Await HIV/hepatitis studies. As above. (5) Acute anemia: Status: Acute Assessment and plan: Most likely dilutional. Ferritin will be elevated due to sepsis. Will check b12/folate. Slow down IVF. (6) DVT prophylaxis: Status: Acute Assessment and plan: Not required in an ambulatory 24 year old patient (7) Discharge planning issues: Status: Acute Assessment and plan: Full code Continues to require hospitalization. Patient was advised that if she decided to leave [place] there is a strong likelihood of her dying from her infection and that she really needs to stay in the hospital. She verbalized understanding. Subjective Subjective Interval history since last seen: Ms Dunne states that she feels better today than she did for the couple of days prior to coming to the hospital. The reason she thought she was going through opiate withdrawal was because she was having shakes. We discussed how infection could also have caused her to have a fever and to have similar symptoms. She endorsed having a headache and back pain at home. Both are gone right now. Denies neck pain, saddle anesthesia symptoms, LE weakness/numbness/tingling. States she has a retained needle in her left hand for at least 1 year. States her psychosis has required hospitalization x 3 times in the past - twice in [place] and once by [place]. All 3 times she was told that this was drug induced psychosis, so she was never given a diagnosis of schizophrenia, etc, and was never initiated on maintenance meds. She moved from [place] 8 months ago. She has not established care with PCP or mental health here. She has not yet established care with [facility]. Exam Narrative Exam Narrative: General: Pleasant, tearful female, who appears comfortable when I visit her today HEENT: EOMI, MMM Heart: RRR, no m/r/g Lungs: CTAB Abdomen: soft, nontender, nondistended Extremities: Both hands with trackmarks; I do not palpate an abscess in L hand/wrist. Tattoos BUEs. 5/5 strength in BLEs. Objective Last Vital Signs Temp 36.7 C 12/06/20 11:45 Pulse 84 12/06/20 11:45 Resp 16 12/06/20 11:45 BP 115/62 12/06/20 14:28 Pulse Ox 100 12/06/20 11:45 Laboratory Results - last 24 hr 12/05/20 12/05/20 12/05/20 15:40 15:40 15:40 WBC RBC Hgb Hct MCV MCH MCHC RDW Plt Count MPV Immature Gran % Neutrophils % Lymphocytes % Monocytes % Eosinophils % Basophils % Nucleated RBC % Absolute Neutrophils Absolute Lymphocytes Absolute Monocytes Absolute Eosinophils Absolute Basophils ESR PT INR VBG Lactate 1.0 Sodium 138 Potassium 3.2 L Chloride 102 Carbon Dioxide 22.4 Anion Gap 13.6 H BUN 7 Creatinine 0.9 Estimated GFR/1.73 m2 >= 60.00 Glucose 112 H Calcium 9.6 Magnesium 1.7 L Total Bilirubin 0.6 AST 19 ALT 23 Alkaline Phosphatase 124 H C-Reactive Protein Total Protein 8.9 H Albumin 4.2 Procalcitonin Urine Color Urine Clarity Urine pH Ur Specific Lenox Urine Protein Urine Ketones Urine Blood Urine Nitrite Urine Bilirubin Urine Urobilinogen Ur Leukocyte Esterase Urine RBC Urine WBC Ur Epithelial Cells Urine Crystals Urine Bacteria Urine Casts Urine Mucus Ur Culture Indicated? Urine Glucose Salicylates < 2.8 Urine Opiates Screen Urine Methadone Screen Acetaminophen < 2 Ur Barbiturates Screen Ur Tricyclics Screen Ur Amphetamines Screen U Benzodiazepines Scrn Urine Cocaine Screen Ur THC Screen Ethyl Alcohol < 3.0 COVID-19 Source SARS-CoV-2 (PCR) 12/05/20 12/05/20 12/05/20 15:40 15:40 15:41 WBC 11.34 H RBC 4.18 Hgb 11.8 Hct 35.1 L MCV 84.0 MCH 28.2 MCHC 33.6 RDW 12.8 Plt Count 253 MPV 8.1 Immature Gran % 0.5 Neutrophils % 90.9 Lymphocytes % 6.3 Monocytes % 2.0 Eosinophils % 0.0 Basophils % 0.3 Nucleated RBC % 0 Absolute Neutrophils 10.31 H Absolute Lymphocytes 0.71 L Absolute Monocytes 0.23 Absolute Eosinophils 0.00 Absolute Basophils 0.03 ESR PT 10.9 INR 1.1 VBG Lactate Sodium Potassium Chloride Carbon Dioxide Anion Gap BUN Creatinine Estimated GFR/1.73 m2 Glucose Calcium Magnesium Total Bilirubin AST ALT Alkaline Phosphatase C-Reactive Protein 5.69 H Total Protein Albumin Procalcitonin Urine Color Urine Clarity Urine pH Ur Specific Lenox Urine Protein Urine Ketones Urine Blood Urine Nitrite Urine Bilirubin Urine Urobilinogen Ur Leukocyte Esterase Urine RBC Urine WBC Ur Epithelial Cells Urine Crystals Urine Bacteria Urine Casts Urine Mucus Ur Culture Indicated? Urine Glucose Salicylates Urine Opiates Screen Urine Methadone Screen Acetaminophen Ur Barbiturates Screen Ur Tricyclics Screen Ur Amphetamines Screen U Benzodiazepines Scrn Urine Cocaine Screen Ur THC Screen Ethyl Alcohol COVID-19 Source SARS-CoV-2 (PCR) 12/05/20 12/05/20 12/05/20 15:41 16:06 16:06 WBC RBC Hgb Hct MCV MCH MCHC RDW Plt Count MPV Immature Gran % Neutrophils % Lymphocytes % Monocytes % Eosinophils % Basophils % Nucleated RBC % Absolute Neutrophils Absolute Lymphocytes Absolute Monocytes Absolute Eosinophils Absolute Basophils ESR 26 H PT INR VBG Lactate Sodium Potassium Chloride Carbon Dioxide Anion Gap BUN Creatinine Estimated GFR/1.73 m2 Glucose Calcium Magnesium Total Bilirubin AST ALT Alkaline Phosphatase C-Reactive Protein Total Protein Albumin Procalcitonin Urine Color Yellow Urine Clarity Clear Urine pH 6.0 Ur Specific Lenox 1.025 Urine Protein 30 H Urine Ketones 40 H Urine Blood Negative Urine Nitrite Negative Urine Bilirubin Negative Urine Urobilinogen 0.2 Ur Leukocyte Esterase Negative Urine RBC Negative Urine WBC 5-10 Ur Epithelial Cells Rare Urine Crystals Negative Urine Bacteria Rare Urine Casts Negative Urine Mucus Negative Ur Culture Indicated? Yes Urine Glucose Negative Salicylates Urine Opiates Screen Negative Urine Methadone Screen Negative Acetaminophen Ur Barbiturates Screen Negative Ur Tricyclics Screen Positive A Ur Amphetamines Screen Negative U Benzodiazepines Scrn Negative Urine Cocaine Screen Negative Ur THC Screen Negative Ethyl Alcohol COVID-19 Source SARS-CoV-2 (PCR) 12/05/20 12/06/20 12/06/20 16:55 06:20 06:20 WBC 10.91 H RBC 3.48 L Hgb 9.6 L D Hct 29.3 L MCV 84.2 MCH 27.6 MCHC 32.8 RDW 13.2 Plt Count 225 MPV 8.5 Immature Gran % 0.4 Neutrophils % 68.0 Lymphocytes % 21.1 Monocytes % 6.1 Eosinophils % 4.0 Basophils % 0.4 Nucleated RBC % 0 Absolute Neutrophils 7.42 H Absolute Lymphocytes 2.30 Absolute Monocytes 0.67 Absolute Eosinophils 0.44 Absolute Basophils 0.04 ESR PT INR VBG Lactate Sodium 142 Potassium 3.6 Chloride 108 H Carbon Dioxide 25.3 Anion Gap 8.7 BUN 6 L Creatinine 0.7 Estimated GFR/1.73 m2 >= 60.00 Glucose 103 Calcium 8.5 Magnesium 1.9 Total Bilirubin 0.6 AST 10 L ALT 21 Alkaline Phosphatase 78 C-Reactive Protein 8.94 H Total Protein 6.5 Albumin 2.9 L Procalcitonin Urine Color Urine Clarity Urine pH Ur Specific Lenox Urine Protein Urine Ketones Urine Blood Urine Nitrite Urine Bilirubin Urine Urobilinogen Ur Leukocyte Esterase Urine RBC Urine WBC Ur Epithelial Cells Urine Crystals Urine Bacteria Urine Casts Urine Mucus Ur Culture Indicated? Urine Glucose Salicylates Urine Opiates Screen Urine Methadone Screen Acetaminophen Ur Barbiturates Screen Ur Tricyclics Screen Ur Amphetamines Screen U Benzodiazepines Scrn Urine Cocaine Screen Ur THC Screen Ethyl Alcohol COVID-19 Source Nasal/nares SARS-CoV-2 (PCR) Negative 12/06/20 06:20 WBC RBC Hgb Hct MCV MCH MCHC RDW Plt Count MPV Immature Gran % Neutrophils % Lymphocytes % Monocytes % Eosinophils % Basophils % Nucleated RBC % Absolute Neutrophils Absolute Lymphocytes Absolute Monocytes Absolute Eosinophils Absolute Basophils ESR PT INR VBG Lactate Sodium Potassium Chloride Carbon Dioxide Anion Gap BUN Creatinine Estimated GFR/1.73 m2 Glucose Calcium Magnesium Total Bilirubin AST ALT Alkaline Phosphatase C-Reactive Protein Total Protein Albumin Procalcitonin 10.5 Urine Color Urine Clarity Urine pH Ur Specific Lenox Urine Protein Urine Ketones Urine Blood Urine Nitrite Urine Bilirubin Urine Urobilinogen Ur Leukocyte Esterase Urine RBC Urine WBC Ur Epithelial Cells Urine Crystals Urine Bacteria Urine Casts Urine Mucus Ur Culture Indicated? Urine Glucose Salicylates Urine Opiates Screen Urine Methadone Screen Acetaminophen Ur Barbiturates Screen Ur Tricyclics Screen Ur Amphetamines Screen U Benzodiazepines Scrn Urine Cocaine Screen Ur THC Screen Ethyl Alcohol COVID-19 Source SARS-CoV-2 (PCR)
--- NOTE | 2020-12-06 15:38 | DI.VRAD_ITS ---
PROCEDURE INFORMATION: Exam: XR Left Hand Exam date and time: 12/06/2020 3:18 PM Age: 24 years old Clinical indication: Pain; Hand; Left TECHNIQUE: Imaging protocol: XR Left hand. Views: 3 or more views. COMPARISON: No relevant prior studies available. FINDINGS: Bones/joints: Normal. Soft tissues: Tiny linear metallic density projects in the soft tissues dorsal to the hamate and capitate bones. This is like a needle fragment. It measures approximately 1 cm in length. IMPRESSION: Linear metallic density in the soft tissues dorsal to the capitate and hamate. Dictated and Authenticated by: Nikole Borjas MD. Ordering:MATEO Holland MD
--- NOTE | 2020-12-06 15:38 | DI.VRAD_ITS ---
PROCEDURE INFORMATION: Exam: XR Lumbosacral Spine Exam date and time: 12/06/2020 2:52 PM Age: 24 years old Clinical indication: Low back pain TECHNIQUE: Imaging protocol: XR of the lumbosacral spine. Views: 4 or 5 views. COMPARISON: No relevant prior studies available. FINDINGS: Bones/joints: Transitional appearance of L5. Soft tissues: Unremarkable. IMPRESSION: Transitional appearance of L5 vertebral body. Lumbar spine otherwise normal. Dictated and Authenticated by: Nikole Borjas MD. Ordering:MATEO Holland MD
[2020-12-06] MEDS: Normal Saline 1,000 ML 100 ML IV (16:29)
[2020-12-07] MEDS: cloNIDine 0.1 MG TAB PO ×5 (01:54→21:14)
[2020-12-07] MEDS: LORazepam 1 MG TAB PO ×3 (03:02→22:05)
[2020-12-07] MEDS: Normal Saline 1,000 ML 100 ML IV ×2 (03:02→16:46)
[2020-12-07 03:40] VITALS: BP 104/67; PULSE 59; RESP 17; TEMP 36.9; O2SAT 98
[2020-12-07 05:45] LABS: Abs Immature Grans 0.02 10^3/uL (0.0-0.06); Absolute Basophil Count 0.03 10^3/uL (0.0-0.2); Absolute Eosinophil Count 0.35 10^3/uL (0.0-0.7); Absolute Lymphocyte Count 2.43 10^3/uL (1.2-3.4); Absolute Monocyte Count 0.49 10^3/uL (0.1-0.8); Basophils % 0.4; Eosinophils % 5.2; HCT 30.1 % (36.0-46.0); HGB 9.7 g/dL (11.2-15.7); Immature Grans % 0.3; Lymphocytes % 35.9; MCH 27.9 pg (27.0-33.0); MCHC 32.2 % (32.0-36.0); MCV 86.5 fL (80-95); MPV 8.6 fL (8.0-11.0); Monocytes % 7.2; Nucleated RBC 0 %; Platelet Count 232 10^3/uL (130-400); RBC 3.48 10^6/uL (3.93-5.22); RDW 13.2 % (11.7-14.6); RDW-SD 41.3 fL; WBC 6.76 10^3/uL (4.4-10.8)
[2020-12-07 05:55] LABS: Absolute Neutrophil Count 3.45 10^3/uL (1.2-6.7); BUN 5 mg/dL (7-18); C-Reactive Protein 5.56 mg/dL (0.0-0.3); CREATININE 0.8 mg/dL (0.55-1.02); Calcium 8.6 mg/dL (8.5-10.1); Chloride 109 mmol/L (98-107); Glucose 107 mg/dL (74-106); Magnesium 1.8 mg/dL (1.8-2.4); Potassium 3.7 mmol/L (3.5-5.1); Sodium 143 mmol/L (136-145)
[2020-12-07 05:59] LABS: Vancomycin, Trough 12.8 ug/mL (10.0-20.0)
[2020-12-07] MEDS: VANCOMYCIN 750 MG in Normal Saline 250 ML 250 MG IV ×3 (06:12→22:06)
[2020-12-07 06:56] LABS: Folate 16.1 ng/mL (8.6-20.0); Vitamin B12 402 pg/mL (193-986)
[2020-12-07 07:21] VITALS: BP 114/74; PULSE 51; RESP 19; TEMP 36.3; O2SAT 99
--- NOTE | 2020-12-07 08:00 | DI.US_ITS ---
APPROVED REPORT EXAM: Comprehensive 2D, Doppler, and color-flow Echocardiogram Patient Location: In-Patient Room/Bed: 225 Operations Developer: Roopa Olivarez RDCS (AE) Indications: Bacteremia Other Information Study Quality: Good Conclusion Left Ventricle : The left ventricle is normal size. The left ventricular systolic function is normal. The left ventricular ejection fraction is within the normal range. There is normal left ventricular wall thickness. There is normal LV segmental wall motion. The left ventricular diastolic function is normal. LVEF is 65-70%. Right Ventricle : The right ventricle is normal size. The right ventricular systolic function is norm al. The RVSP is 21.7 mmHg. Atria : The left atrium size is normal. The right atrium size is normal. Valves: There are no hemodynamically significant valvular lesions. There were no valvular vegetation s visualized. Great Vessels : The aortic root is normal in size. The ascending aorta is normal in size. Aortic arch is not visualized. IVC is normal in size and collapses >50% with inspiration. Please see remainder of study for further details. Wall motion Left Ventricle The left ventricle is normal size. The left ventricular systolic function is normal. The left ventric ular ejection fraction is within the normal range. There is normal left ventricular wall thickness. T here is normal LV segmental wall motion. The left ventricular diastolic function is normal. There is no ventricular septal defect visualized. LVEF is 65-70%. Right Ventricle The right ventricle is normal size. The right ventricular systolic function is normal. The RVSP is 21 .7 mmHg. Atria The left atrium size is normal. The right atrium size is normal. The interatrial septum is intact wit h no evidence for an atrial septal defect. Aortic Valve The aortic valve is normal in structure. Aortic valve is trileaflet. There is no aortic valvular sten osis. No aortic regurgitation is present. There is no aortic valvular vegetation. Mitral Valve The mitral valve is normal in structure. No evidence of mitral valve stenosis. Trace mitral regurgita tion. There is no evidence of mitral valve vegetations. Tricuspid Valve The tricuspid valve is normal in structure. There is no tricuspid valve stenosis. Trace to mild tricu spid regurgitation. There is no tricuspid valve vegetations. Pulmonic Valve The pulmonary valve is normal in structure. There is no pulmonic valvular stenosis. There is no pulmo carly valvular regurgitation. There is no pulmonic valve vegetations. Great Vessels The aortic root is normal in size. The ascending aorta is normal in size. Aortic arch is not visualiz ed. IVC is normal in size and collapses >50% with inspiration. Pericardium There is no pericardial effusion. 2D Dimensions IVSD d PLAX 0.70 cm F: 0.6-1.0 LV Vol A2C d MOD 88.7 mL LVPW d PLAX 0.70 cm F: 0.6 - 1.0 LV Vol A4C d MOD 91.8 mL LVID d PLAX 4.23 cm F: 3.8 - 5.2 LA vol/ BSA A2C s A-L 18.5 mL/m2 LVDs 2.60 cm F: 2.2 - 3.5 LA vol/ BSA A4C s A-L 28.5 mL/m2 Ao Root d 2.52 cm F: 2.7 - 3.3 LA Vol/ BSA Biplane s A-L 23.6 mL/m2 RA Area A4C 12.69 cm2 LA Area A4C s MOD 15.63 cm2 RA Vol/ BSA A4C s A-L 20.3 mL/m2 LA Area A2C s MOD 12.25 cm2 Ao Asc Diam d 2.62 cm F: 2.3 - 3.1 LV EF A4C MOD 65.4 % LV EF Teichholz 67.7 % LV EF A2C MOD 69.6 % LVEF (Andujar's) 68.48 % F: 54 - 74 LV EF Biplane MOD 68.5 % LV Volume 80.05 mL F: 46 - 106 SV 64.78 mL LV Volume Index 55.59 mL/m2 F: 29 - 61 SV Index 44.85 mL/m2 LV Vol Biplane MOD 94.6 mL FS 37.35 % M-Mode TAPSE 2.70 cm (M/F) >1.7 LV Diastology MV E' medial 0.138 (>0.07 m/s) E/A Ratio 2.2 LV E/e MED 7.15 (<14) MV E Vmax 0.99 (0.4-1.3 m/s) MV E' lateral 0.235 (>0.1 m/s) MV A Vmax 0.45 (0.4-1.3 m/s) LV E/e LAT 4.20 (<14) MV E/A Ratio 2.16 MV E/E' medial 7.18 MV E/E' lateral 4.22 Aortic Valve LVOT Area 2.61 cm2 AoV Area Vmax 2.08 cm2 LVOT Vmax 0.90 m/s AoV Area/ BSA (Vmax) 1.44 cm2/m2 LVOT Mean Quinten. 0.59 m/s BRIAN Mean Quinten. 2.08 cm2 LVOT Peak Grad 3.2 mmHg BRIAN Mean Quinten. Index 1.44 cm2/m2 LVOT Mean Grad 1.6 mmHg LVOT VTI 0.207 m LVOT Diam s 1.80 cm AoV Vmax 1.12 m/s Velocity Ratio 0.80 AoV Mean Quinten. 0.74 m/s AoV Peak Grad 5.1 mmHg LVOT SV 54.00 mL AoV Mean Grad 2.5 mmHg AoV VTI 0.259 m AoV Area VTI 2.09 cm2 AoV Area/ BSA (VTI) 1.44 cm/m2 Mitral Valve MV DT 141 (160-240 msec) MV PHT 41 msec MV Area PHT 5.38 cm2 MV VTI 0.227 m MV Area VTI 2.38 (4.0-6.0 cm2) Pulmonary Valve PV Vmax 0.92 (0.5-1.5 m/s) RVOT Peak Gr. 2.76 mmHg PV Peak Grad 3.4 mmHg RVOT Mean Gr. 1.75 mmHg PV Mean Grad 2.0 mmHg RVOT VTI 0.213 m PV VTI 0.270 m RVOT Vmax 0.83 m/s Tricuspid Valve TR Peak Grad 18.6 mmHg TR Vmax 2.16 m/s RA Pressure 3.00 mmHg RVSP (TR) 21.7 mmHg
--- NOTE | 2020-12-07 08:00 | DI.MRI_ITS ---
EXAM: MR LUMBAR SPINE WO/W CLINICAL HISTORY: back pain in septic IV drug user with bacteremia. TECHNIQUE: Multiplanar multisequence MRI of the Lumbar Spine was performed. CONTRAST MATERIAL: IV Contrast: 8 mL of Dotarem contrast administered. COMPARISON: CT CT CHEST PE CTA from 12/03/2020 CR,XR XR LUMBAR SPINE COMPLETE from 12/06/2020 FINDINGS: Bones: The last intervertebral disc space is designated the L5/S1 level for the numbering purpose of this examination. The vertebral body heights are well maintained. Alignment is satisfactory. The sig nal characteristics are unremarkable. Cord: The conus tip ends at the L1 level. It is of normal size and signal intensity. T12-L1: No disc herniations or bulges are present. No central spinal canal or neural foraminal stenos is. L1-2: No disc herniations or bulges are present. No central spinal canal or neural foraminal stenosis . L2-3: No disc herniations or bulges are present. No central spinal canal or neural foraminal stenosis . L3-4: No disc herniations or bulges are present. No central spinal canal or neural foraminal stenosis . L4-5: No disc herniations or bulges are present. No central spinal canal or neural foraminal stenosis . L5-S1: No disc herniations or bulges are present. No central spinal canal or neural foraminal stenosi s. Soft tissues: The visualized SI joints and sacrum are well maintained. The paraspinal soft tissues ar e unremarkable. There is no evidence of suspicious enhancement. IMPRESSION: 1. No evidence of significant spinal stenosis or neuroforaminal narrowing. 2. No evidence of epidural abscess, discitis or osteomyelitis. DATA REPOSITORY:
[2020-12-07] MEDS: Normal Saline Flush 10 ML SYR IVP ×2 (08:49→09:35)
[2020-12-07] MEDS: Gadoterate meglumine 20 ML VIAL 8 ML IVP (08:50)
[2020-12-07] MEDS: PIPERACILLIN/TAZO 3.375 GM in Normal Saline 50 ML IVPB ×2 (09:45→17:24)
[2020-12-07] MEDS: Cyanocobalamin 1000 MCG/ML VIAL IM/SC (10:33)
[2020-12-07 10:45] VITALS: BP 118/77; PULSE 75; RESP 19; TEMP 36.6; O2SAT 100
--- NOTE | 2020-12-07 13:13 | W.NUTRFU ---
Date of service: 12/07/20 Time of Service: 13:14 Nutritional Follow up NOTE: 24 year old female admitted with sepsis with hx of IV drug use. BMI indicates underweight status. Following regular diet with excellent intake. Not at nutritional risk at this time. will continue to follow Time Spent in Nutritional Counseling and Treatment: 0
--- NOTE | 2020-12-07 14:51 | CHAPLAIN ---
Rhonda was resting in bed when I visited this afternoon, using a laptop. She asked for a Bible and I got one for her. During that visit, she told me that she has used drugs in the past and sometimes under the influences drugs, she begins he see and hear demons. She was worried that she has a demon inside her that might need exorcising. We talked about her connection to God, and how that is not disrupted by demons of any kinds. Rhonda said she has stopped using drugs and does not want to use methadone from [facility]. Her girlfriend will be getting off drugs, but using [facility] for a few days, Rhonda said. She identified her girlfriend as a support. I let Rhonda know that I'm available for support and conversation at any time.
--- NOTE | 2020-12-07 16:21 | PGE_ITS ---
Date of Service Date of service: 12/07/20 Time of Service: 16:21 Assessment and Plan Assessment and plan (1) Gram negative sepsis: Status: Acute Assessment and plan: Blood cx positive for GNR (2 bottles/4 on original blood cultures; speciation/sensitivities P). Repeat blood cultures done today. Continue vanco/zosyn until results of speciation known. CRP better. Valves looked good on echo. No OM/abscess on MRI. (2) Opiate addiction: Status: Chronic Assessment and plan: The patient is interested in pursuing follow up with [facility], but not in having suboxone today. The patient will reassess if she still wants it. The patient has a data recovery planner assigned to her. 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 The patient was very clear that her prior psychiatric hospitalizations came to this same diagnosis. Monitor for hallucinations. (4) IV drug user: Status: Chronic Assessment and plan: HIV negative. Hep C ab reactive. Will discuss with patient (she is on the phone with friends right now). As above. (5) Acute anemia: Status: Acute Assessment and plan: Most likely dilutional. Ferritin will be elevated due to sepsis. Is B12 deficient - replete. Continue to monitor H/H. (6) DVT prophylaxis: Status: Acute Assessment and plan: Not required in an ambulatory 24 year old patient (7) Discharge planning issues: Status: Acute Assessment and plan: Full code Continues to require hospitalization. [facility] on discharge. Subjective Subjective Interval history since last seen: Feels much better today. Denies dizziness, chest pain, shortness of breath, nausea. No hallucinations. She does not feel like she is withdrawing from opioids today and decided against using suboxone for now - she will see how she feels in the am. Exam Narrative Exam Narrative: General: Pleasant, tearful female, who looks better HEENT: EOMI, MMM Heart: RRR, no m/r/g Lungs: CTAB Abdomen: soft, nontender, nondistended Extremities: Both hands with trackmarks Objective Last Vital Signs Temp 36.6 C 12/07/20 10:45 Pulse 75 12/07/20 10:45 Resp 19 12/07/20 10:45 BP 118/77 12/07/20 10:45 Pulse Ox 100 12/07/20 10:45 Laboratory Results - last 24 hr 12/07/20 12/07/20 12/07/20 05:38 05:38 05:38 WBC 6.76 D RBC 3.48 L Hgb 9.7 L Hct 30.1 L MCV 86.5 MCH 27.9 MCHC 32.2 RDW 13.2 Plt Count 232 MPV 8.6 Immature Gran % 0.3 Neutrophils % 51.0 Lymphocytes % 35.9 Monocytes % 7.2 Eosinophils % 5.2 Basophils % 0.4 Nucleated RBC % 0 Absolute Neutrophils 3.45 Absolute Lymphocytes 2.43 Absolute Monocytes 0.49 Absolute Eosinophils 0.35 Absolute Basophils 0.03 Sodium 143 Potassium 3.7 Chloride 109 H Carbon Dioxide 24.0 Anion Gap 10.0 BUN 5 L Creatinine 0.8 Estimated GFR/1.73 m2 >= 60.00 Glucose 107 H Calcium 8.6 Magnesium 1.8 C-Reactive Protein 5.56 H Vitamin B12 Folate Vancomycin Trough 12.8 12/07/20 05:38 WBC RBC Hgb Hct MCV MCH MCHC RDW Plt Count MPV Immature Gran % Neutrophils % Lymphocytes % Monocytes % Eosinophils % Basophils % Nucleated RBC % Absolute Neutrophils Absolute Lymphocytes Absolute Monocytes Absolute Eosinophils Absolute Basophils Sodium Potassium Chloride Carbon Dioxide Anion Gap BUN Creatinine Estimated GFR/1.73 m2 Glucose Calcium Magnesium C-Reactive Protein Vitamin B12 402 Folate 16.1 Vancomycin Trough Echo: Left Ventricle : The left ventricle is normal size. The left ventricular systolic function is normal. The left ventricular ejection fraction is within the normal range. There is normal left ventricular wall thickness. There is normal LV segmental wall motion. The left ventricular diastolic function is normal. LVEF is 65-70%. Right Ventricle : The right ventricle is normal size. The right ventricular systolic function is normal. The RVSP is 21.7 mmHg. Atria : The left atrium size is normal. The right atrium size is normal. Valves: There are no hemodynamically significant valvular lesions. There were no valvular vegetations visualized. Great Vessels : The aortic root is normal in size. The ascending aorta is normal in size. Aortic arch is not visualized. IVC is normal in size and collapses >50% with inspiration. Please see remainder of study for further details. MRI LS spine: 1. No evidence of significant spinal stenosis or neuroforaminal narrowing. 2. No evidence of epidural abscess, discitis or osteomyelitis.
--- NOTE | 2020-12-07 17:43 | CMPROGNOTE_ITS ---
- If Service Date Differs Date of service: 12/07/20 Time of Service: 17:43 Care Management Progress Note S/O: Rhonda was on her computer, face timing with her fiance, Pennie, when CM entered her room. Rhonda inquired about her transit coach operator, Luli, as she was asked to help Pennie get connected to [facility] today. Shortly after, Pennie received a message from Luli, stating that another transit coach operator would be assisting her, and the call ended. Rhonda stated that she felt that Pennie needs the sup port prior to Rhonda returning home, especially since Rhonda is receiving support while at [facility]. CM facilitated Rhonda filling out the release for [facility], in order for a navigator to assist in signing her up for [facility]. Per MD, Rhonda will remain at [facility] for at least 48 hours, to determine her abx course. Rhonda has books, journals, her computer, and the TV, but reported that she feels depressed that she will have to remain at [facility] for the next couple of days. CM brought her a [employer] puzzle book, at her request. 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 CM will continue to follow. A: Rhonda is a 24 year old female admitted to [facility] on 12/05/20 for fever, IV drug use, UTI, auditory hallucinations. P: Rhonda will likely be discharged home when medically cleared by provider. In the presence of gram negative bacteremia, it is possible she will require buttermilk drier operator IV antibiotic therapy. Several options for treatment may be available, depending on the organism, source and specific regimen required. Rhonda will follow up with the PCP assigned and transport with her diann. CM has sent a referral to [facility] for insurance and other possible community supports.CM will continue to support Rhonda and assess for ongoing discharge planning concerns.
--- NOTE | 2020-12-07 17:43 | PDOC.CMPRO ---
- If Service Date Differs Date of service: 12/07/20 Time of Service: 17:43 Care Management Progress Note S/O: Rhonda was on her computer, face timing with her fiance, Pennie, when CM entered her room. Rhonda inquired about her middle school coach, Luli, as she was asked to help Pennie get connected to [facility] today. Shortly after, Pennie received a message from Luli, stating that another middle school coach would be assisting her, and the call ended. Rhonda stated that she felt that Pennie needs the support prior to Rhonda returning home, especially since Rhonda is receiving support while at [facility]. CM facilitated Rhonda filling out the release for [employer], in order for a navigator to assist in signing her up for [facility]. Per MD, Rhonda will remain at [facility] for at least 48 hours, to determine her abx course. Rhonda has books, journals, her computer, and the TV, but reported that she feels depressed that she will have to remain at [facility] for the next couple of days. CM brought her a [employer] puzzle book, at her request. 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 CM will continue to follow. A: Rhonda is a 24 year old female admitted to [facility] on 12/05/20 for fever, IV drug use, UTI, auditory hallucinations. P: Rhonda will likely be discharged home when medically cleared by provider. In the presence of gram negative bacteremia, it is possible she will require assistant terminal manager IV antibiotic therapy. Several options for treatment may be available, depending on the organism, source and specific regimen required. Rhonda will follow up with the PCP assigned and transport with her diann. CM has sent a referral to [facility] for insurance and other possible community supports.CM will continue to support Rhonda and assess for ongoing discharge planning concerns.
[2020-12-07 19:35] VITALS: BP 124/78; PULSE 75; RESP 16; TEMP 37.1; O2SAT 100
[2020-12-08] MEDS: PIPERACILLIN/TAZO 3.375 GM in Normal Saline 50 ML IVPB ×3 (00:15→16:08)
[2020-12-08] MEDS: cloNIDine 0.1 MG TAB PO ×5 (00:26→20:44)
[2020-12-08 00:30] VITALS: BP 100/62; PULSE 50; RESP 16; TEMP 36.4; O2SAT 98
[2020-12-08] MEDS: Normal Saline 1,000 ML 100 ML IV (02:21)
[2020-12-08] MEDS: LORazepam 1 MG TAB PO ×2 (05:53→21:25)
[2020-12-08] MEDS: VANCOMYCIN 750 MG in Normal Saline 250 ML 250 MG IV ×2 (05:54→14:32)
[2020-12-08 06:50] VITALS: BP 116/79; PULSE 59; RESP 16; TEMP 36.6; O2SAT 100
[2020-12-08 06:55] LABS: Abs Immature Grans 0.02 10^3/uL (0.0-0.06); Absolute Basophil Count 0.03 10^3/uL (0.0-0.2); Absolute Lymphocyte Count 2.81 10^3/uL (1.2-3.4); Absolute Monocyte Count 0.53 10^3/uL (0.1-0.8); Absolute Neutrophil Count 3.54 10^3/uL (1.2-6.7); Basophils % 0.4; Eosinophils % 4.1; HCT 29.1 % (36.0-46.0); HGB 9.6 g/dL (11.2-15.7); Immature Grans % 0.3; Lymphocytes % 38.9; MCH 28.2 pg (27.0-33.0); MCV 85.3 fL (80-95); MPV 8.3 fL (8.0-11.0); Monocytes % 7.3; Nucleated RBC 0 %; Platelet Count 299 10^3/uL (130-400); RBC 3.41 10^6/uL (3.93-5.22); WBC 7.23 10^3/uL (4.4-10.8)
[2020-12-08 07:05] LABS: Anion Gap 10.8 mmol/L (3-11); BUN 5 mg/dL (7-18); C-Reactive Protein 2.41 mg/dL (0.0-0.3); CO2 25.2 mmol/L (21.0-32.0); CREATININE 0.8 mg/dL (0.55-1.02); Calcium 8.4 mg/dL (8.5-10.1); Chloride 109 mmol/L (98-107); Glucose 95 mg/dL (74-106); Magnesium 1.7 mg/dL (1.8-2.4); Potassium 3.2 mmol/L (3.5-5.1); Sodium 145 mmol/L (136-145)
[2020-12-08] MEDS: Cyanocobalamin 500 MCG TAB 1000 MCG PO (08:23)
[2020-12-08 11:08] VITALS: BP 107/71; PULSE 60; RESP 18; TEMP 37.7; O2SAT 100
[2020-12-08] MEDS: Normal Saline Flush 10 ML SYR IVP ×2 (11:36→20:46)
[2020-12-08] MEDS: Potassium Chloride 20 MEQ TABCR 40 MEQ PO (11:36)
[2020-12-08] MEDS: MAGNESIUM SULFATE 2 GM/50 ML BAG IVPB (11:37)
[2020-12-08 13:51] LABS: Vancomycin, Trough 11.8 ug/mL (10.0-20.0)
[2020-12-08 14:49] VITALS: BP 112/65; PULSE 58; RESP 16; TEMP 36.9; O2SAT 100
--- NOTE | 2020-12-08 15:07 | CHAPLAIN ---
Rhonda was teary today during out visit. She was in bed. She had her laptop opened. She said she has nothing to do. She was not interested in any of the books or magazines that have been offered to her. Rhonda said she has been in touch with her fiance, but would rather be home with her. From the Appeals Representative's note, it appears Rhonda may be here for 48 hours more.
--- NOTE | 2020-12-08 16:30 | CMPROGNOTE_ITS ---
- If Service Date Differs Date of service: 12/08/20 Time of Service: 16:30 Care Management Progress Note S/O: Rhonda was sitting up in bed when ROQUE met with her. She reported that she is feeling very depressed today because she does not want to be at [facility]. She wants to return home, but understands why she needs to be in the hospital. CM discussed her insurance progress, which is not active as of this morning, but will likely be active this afternoon/tomorrow morning. ROQUE will send a referral f or a new PCP, which will be Dr. Parker, [facility], per the coagulation operator schedule. ROQUE discussed her plan with TIMI Sharma, who will assist in following up out patient for food insecurity and education/employment resources. Rhonda discussed her heroin use with ROQUE, reporting that she was using daily, but her intention is to stop using completely. She does not want to be connected to [facility], as she dsouza sn't want to take Suboxone daily. She feels that she can manage without the maintenance. She stated that she spoke to her elementary instructional coach last night, which is always helpful. CM will continue to follow. A: Rhonda is a 24 year old female admitted to [facility] on 12/05/20 for fever, IV drug use, UTI, auditory hallucinations. P: Rhonda will likely be discharged home when medically cleared by provider. In the presence of gram negative bacteremia, it is possible she will require moth exterminator IV antibiotic therapy. Several options for treatment may be available, depending on the organism, source and specific regimen required. Rhonda will follow up with the PCP assigned and transport with her diann. ROQUE has sent a referral to [facility] for insurance and other possible community supports.CM will continue to support Rhonda and assess for ongoing discharge planning concerns.
--- NOTE | 2020-12-08 16:56 | W.PM.PROGNOT ---
Date of Service Date of service: 12/08/20 Time of Service: 14:15 Assessment and Plan Assessment and plan (1) Gram negative sepsis: Status: Acute Assessment and plan: Blood cx positive for GNR still to be identified and for Aeromonas Hydrophila/caviae (2 bottles/4 on original blood cultures). Repeat blood cultures negative. D/c vanco. Continue zosyn. Await speciation/sensitivities of the 2nd bacterium. CRP better. Valves looked good on echo. No OM/abscess on MRI. (2) Opiate addiction: Status: Chronic Assessment and plan: The patient is interested in pursuing follow up with [facility], but not in having suboxone today. The patient has a disaster recovery manager assigned to her. 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 The patient was very clear that her prior psychiatric hospitalizations came to this same diagnosis. Monitor for hallucinations. (4) IV drug user: Status: Chronic Assessment and plan: HIV negative. Hep C ab reactive. Will need outpatient follow up. As above. (5) Acute anemia: Status: Acute Assessment and plan: Most likely dilutional. Ferritin will be elevated due to sepsis. Is B12 deficient - replete. Continue to monitor H/H. (6) Hypokalemia: Status: Acute Assessment and plan: Replete and recheck in am (7) Hypomagnesemia: Status: Acute Assessment and plan: Replete and recheck in am (8) DVT prophylaxis: Status: Acute Assessment and plan: Not required in an ambulatory 24 year old patient (9) Discharge planning issues: Status: Acute Assessment and plan: Full code Likely discharge home tomorrow with PO abx [facility] on discharge. Subjective Subjective Interval history since last seen: Feels better and wants to go home. Agrees to wait until tomorrow as speciation is not yet available on her 2nd bacterium in her blood culture. Denies dizziness, chest pain, shortness of breath, nausea. Exam Narrative Exam Narrative: General: Pleasant, tearful female, looks even better than yesterday HEENT: EOMI, MMM Heart: RRR, no m/r/g Lungs: CTAB Abdomen: soft, nontender, nondistended Extremities: Both hands with trackmarks Objective Last Vital Signs Temp 36.9 C 12/08/20 14:49 Pulse 58 L 12/08/20 14:49 Resp 16 12/08/20 14:49 BP 112/65 12/08/20 14:49 Pulse Ox 100 12/08/20 14:49 Laboratory Results - last 24 hr 12/08/20 12/08/20 12/08/20 06:34 06:34 13:30 WBC 7.23 RBC 3.41 L Hgb 9.6 L Hct 29.1 L MCV 85.3 MCH 28.2 MCHC 33.0 RDW 13.0 Plt Count 299 MPV 8.3 Immature Gran % 0.3 Neutrophils % 49.0 Lymphocytes % 38.9 Monocytes % 7.3 Eosinophils % 4.1 Basophils % 0.4 Nucleated RBC % 0 Absolute Neutrophils 3.54 Absolute Lymphocytes 2.81 Absolute Monocytes 0.53 Absolute Eosinophils 0.30 Absolute Basophils 0.03 Sodium 145 Potassium 3.2 L Chloride 109 H Carbon Dioxide 25.2 Anion Gap 10.8 BUN 5 L Creatinine 0.8 Estimated GFR/1.73 m2 >= 60.00 Glucose 95 Calcium 8.4 L Magnesium 1.7 L C-Reactive Protein 2.41 H Vancomycin Trough 11.8
[2020-12-08] MEDS: Buprenorphine/Naloxone 4 mg/1 mg FILM 1 EACH SL (17:24)
[2020-12-08 19:45] VITALS: BP 116/71; PULSE 80; RESP 18; TEMP 37.1; O2SAT 100
[2020-12-08] MEDS: Melatonin 3 MG TAB PO (21:27)
[2020-12-08 22:53] VITALS: BP 95/61; PULSE 48; RESP 17; TEMP 36.4; O2SAT 99
[2020-12-09] MEDS: PIPERACILLIN/TAZO 3.375 GM in Normal Saline 50 ML IVPB ×2 (00:54→08:04)
[2020-12-09] MEDS: Normal Saline Flush 10 ML SYR IVP ×2 (00:54→08:04)
[2020-12-09 02:28] VITALS: BP 113/67; PULSE 55; RESP 17; TEMP 36.5; O2SAT 99
[2020-12-09] MEDS: LORazepam 1 MG TAB PO ×2 (04:03→09:58)
[2020-12-09 07:24] LABS: Abs Immature Grans 0.02 10^3/uL (0.0-0.06); Absolute Basophil Count 0.02 10^3/uL (0.0-0.2); Absolute Eosinophil Count 0.28 10^3/uL (0.0-0.7); Absolute Lymphocyte Count 2.27 10^3/uL (1.2-3.4); Absolute Monocyte Count 0.41 10^3/uL (0.1-0.8); Absolute Neutrophil Count 3.27 10^3/uL (1.2-6.7); Basophils % 0.3; Eosinophils % 4.5; HCT 30.1 % (36.0-46.0); Immature Grans % 0.3; Lymphocytes % 36.2; MCH 28.4 pg (27.0-33.0); MCHC 33.2 % (32.0-36.0); MCV 85.5 fL (80-95); Monocytes % 6.5; Neutrophils % 52.2; Nucleated RBC 0 %; Platelet Count 318 10^3/uL (130-400); RBC 3.52 10^6/uL (3.93-5.22); RDW 13.1 % (11.7-14.6); RDW-SD 40.5 fL; WBC 6.27 10^3/uL (4.4-10.8)
[2020-12-09 07:44] LABS: Anion Gap 8.2 mmol/L (3-11); BUN 8 mg/dL (7-18); C-Reactive Protein 1.53 mg/dL (0.0-0.3); CO2 26.8 mmol/L (21.0-32.0); CREATININE 0.9 mg/dL (0.55-1.02); Calcium 9.2 mg/dL (8.5-10.1); Chloride 106 mmol/L (98-107); Glucose 90 mg/dL (74-106); Magnesium 2.2 mg/dL (1.8-2.4); Potassium 3.6 mmol/L (3.5-5.1); Sodium 141 mmol/L (136-145)
[2020-12-09 07:48] LABS: Vancomycin, Trough 5.2 ug/mL (10.0-20.0)
[2020-12-09 08:00] VITALS: BP 105/66; PULSE 66; RESP 18; TEMP 36.8; O2SAT 100
[2020-12-09] MEDS: Cyanocobalamin 500 MCG TAB 1000 MCG PO (08:03)
[2020-12-09 08:37] LABS: HCG Qual (Urine) Negative
[2020-12-09] MEDS: cloNIDine 0.1 MG TAB PO (10:57)
--- NOTE | 2020-12-09 11:08 | DSE_ITS ---
Date of service: 12/09/20 Time of Service: 11:08 DS: Diagnosis Discharge Diagnosis (1) Gram negative sepsis: Status: Acute Asessment and Plan: Aeromonas and another GNR in blood culture (2nd GNR speciation and sensitivities are pending at the time of patient leaving AMA) (2) Foreign body (FB) in soft tissue: Status: Chronic Asessment and Plan: L hand dorsally at wrist level. (3) Opiate withdrawal: Status: Acute (4) Drug-induced psychotic disorder: Status: Chronic (5) Opiate addiction: Status: Chronic (6) IV drug user: Status: Chronic (7) Cocaine abuse: Status: Chronic (8) Hepatitis C antibody test positive: Status: Acute (9) Hypokalemia: Status: Resolved (10) Hypomagnesemia: Status: Resolved (11) B12 deficiency anemia: Status: Chronic (12) COVID-19 ruled out by laboratory testing: Status: Resolved Discharge Plan Disposition Patient Disposition: AGAINST MEDICAL ADVICE Condition: Stable Discharge Details Reason For Visit: FEVER,IV DRUG USE,UTI,AUDITORY HALLUCINATIONS Admit Date/Time: 12/05/20 17:13 Admit Provider: Navid Douglas Attending Provider: Navid Douglas Primary Care Provider: [facility] Hospital Course: Ms Dunne is a 24 year old female with PMHx of IV drug abuse (heroin/cocaine) as well as h/o drug-induced psychotic d/o who was admitted to [facility] hospitalist service on 12/05/20 with Gram negative bacteremia/sepsis as well as substance- induced psychosis. She was placed on empiric vancomycin/zosyn. Her blood cultures from admission have not yet finalized, but one of the organisms is Aeromonas, which is sensitive to levofloxacin. The other organism's speciation/sensitivities are still pending. Repeat blood cultures from 12/07/20 show no growth to date. Transthoracic echo shows no valvular lesions. Because the patient reported brief lower back pain prior to her hospitalization, an MRI of lower back was obtained to r/o vertebral osteomyelitis/septic discitis/epidural abscess and was negative. The patient never had any neurological deficits. The patient does have a remnant of a syringe needle in her L hand which does not currently appear infected, but should be removed. The patient is being referred to general surgery on discharge to address this. Importantly, the patient had a negative urinalysis on this admission and, therefore, did not have a UTI. The patient tested positive for Hep C Ab. She is being referred to a PCP to establish care who will have to pursue treatment of this as outpatient. As far as opioid abuse, the patient was initiated on suboxone in our ED on her prior visit there on 12/03/20 when she was introduced to a acid recovery operator and referred to [facility] for maintenance therapy. Her hallucinations had resolved by the time of arrival to the floor on this admission and were substance induced. The patient was continued on suboxone 4 mg SL film while on inpatient service. The patient is leaving AMA today with a prescription for 12 days of levofloxacin. She verbalized understanding that levofloxacin may not cover her 2nd bacterium on her blood cultures and that she should stay. She is asked to return to the ED if she feels worse. We will follow up on her pending blood culture speciation/sensitivity and contact the patient with these results. Care for patient as well as completion of her discharge summary took 60 minutes. Home Meds and New Rx's Prescriptions: New melatonin 3 mg Tablet Extended Release 3 mg PO HS Qty: 30 RF: 0 cyanocobalamin (vitamin B-12) 1,000 mcg capsule 1,000 mcg PO DAILY Qty: 30 RF: 0 levofloxacin 750 mg tablet 750 mg PO Q24H Qty: 12 RF: 0 Continued Narcan 4 mg/actuation spray,non-aerosol 1 spray intranasal Q2M Qty: 2 RF: 0 Discontinued cephalexin 500 mg tablet 500 mg PO BID 7 Days Qty: 14 RF: 0 Discharge Instructions Instructions: Levofloxacin (By injection), Hepatitis C (DC), Sepsis (DC), Bacteremia (DC) Additional Instructions: You should not leave AMA and should return to the hospital if you feel sick. Finish your antibiotics as prescribed. Return to the hospital if you feel worse, if you are having fevers/chills, chest pain, shortness of breath, or nausea/vomiting. Follow up with the new PCP. Follow up general surgery for the remnant of needle in your hand. Follow up with [facility]. Follow up with [facility] (mental health). Stand Alone Forms: Nursing Discharge Form Referrals: [facility] [Outside] [facility] [Outside] Christine Lee MD [ [facility] STAFF PHYSICIAN] - Willie Duque [ [facility] STAFF PHYSICIAN] - (head right over after leaving) Activity:: Activity as Tolerated Equipment/Supplies:: No Equipment Needed Diet:: As Tolerated Discharge Orders Discharge Orders: Discharge Order (Routine); Ordered 12/09/20 Ordered By: Amalia Duval DS: Summary Time Spent with Patient providing and/or coordinating discharge services: Greater than 30 minutes Status at Discharge Functional status at discharge: independent ambulation Overall status at discharge: patient is progressing back to baseline Mental Status: mental status grossly normal Speech and Movement: speech and movement normal Mood: congruent mood Affect: normal affect Exam Narrative Exam Narrative: General: Pleasant, tearful female, looks even better than yesterday HEENT: EOMI, MMM Heart: RRR, no m/r/g Lungs: CTAB Abdomen: soft, nontender, nondistended Extremities: Both hands with trackmarks Psych Mental Status: mental status grossly normal Speech and Movement: speech and movement normal Mood: congruent mood Affect: normal affect DS: Data Vitals/I&O Vitals and I&O: Vital Signs Temperature 36.8 C 12/09/20 08:00 Temperature Source Tympanic 12/09/20 08:00 Pulse 66 12/09/20 08:00 Pulse Rhythm Regular 12/09/20 09:13 Respiratory Rate 18 12/09/20 08:00 Respiratory Effort 12/09/20 09:13 Respiratory Depth Normal 12/09/20 09:13 Respiratory Pattern Normal 12/09/20 09:13 Blood Pressure 105/66 12/09/20 08:00 Pulse Oximetry 100 12/09/20 08:00 Oxygen Delivery Method Room Air 12/09/20 08:00 Oxygen Flow Rate 0 12/09/20 08:00 Pain Level 0 12/09/20 02:28 Comment 12/06/20 08:03 Intake & Output 12/08/20 12/08/20 12/09/20 11:59 23:59 11:59 Intake Total 1898.333 / 2748.333 850 / 2748.333 440 / 440 Output Total 600 / 1300 700 / 1300 1100 / 1100 Balance 1298.333 / 1448.333 150 / 1448.333 -660 / -660 Weight 44.8 kg 44.7 kg Intake: IV 1258.333 / 1618.333 360 / 1618.333 50 / 50 Oral 640 / 1130 490 / 1130 390 / 390 Output: Urine 600 / 1300 700 / 1300 1100 / 1100 Other: Urine Color Pale Pale Yellow Urine Appearance Clear Clear Clear Urine Odor None None Normal Comment void x 1, measuring hat added to toilet at this time. Voiding Methods Toilet Toilet Toilet Data Completed and Pending Completed studies during hospitalization [Text1]: CXR: Normal chest. XR L hand: There is a metallic foreign body needle located dorsally at the wrist level. This is just dorsal to the capitate-hamate. XR Lumbar spine: Small L5-S1 disc space. This is related to sacralization of the L5 segment. No other significant radiographic findings. TTE: Left Ventricle : The left ventricle is normal size. The left ventricular systolic function is normal. The left ventricular ejection fraction is within the normal range. There is normal left ventricular wall thickness. There is normal LV segmental wall motion. The left ventricular diastolic function is normal. LVEF is 65-70%. Right Ventricle : The right ventricle is normal size. The right ventricular systolic function is normal. The RVSP is 21.7 mmHg. Atria : The left atrium size is normal. The right atrium size is normal. Valves: There are no hemodynamically significant valvular lesions. There were no valvular vegetations visualized. Great Vessels : The aortic root is normal in size. The ascending aorta is normal in size. Aortic arch is not visualized. IVC is normal in size and collapses >50% with inspiration. Please see remainder of study for further details. MRI lumbar spine: 1. No evidence of significant spinal stenosis or neuroforaminal narrowing. 2. No evidence of epidural abscess, discitis or osteomyelitis. Labs on day of discharge: Labs from last 24 hours 12/09/20 12/09/20 12/09/20 08:00 07:05 07:05 WBC 6.27 RBC 3.52 L Hgb 10.0 L Hct 30.1 L MCV 85.5 MCH 28.4 MCHC 33.2 RDW 13.1 Plt Count 318 MPV 8.0 Immature Gran % 0.3 Neutrophils % 52.2 Lymphocytes % 36.2 Monocytes % 6.5 Eosinophils % 4.5 Basophils % 0.3 Nucleated RBC % 0 Absolute Neutrophils 3.27 Absolute Lymphocytes 2.27 Absolute Monocytes 0.41 Absolute Eosinophils 0.28 Absolute Basophils 0.02 Sodium 141 Potassium 3.6 Chloride 106 Carbon Dioxide 26.8 Anion Gap 8.2 BUN 8 Creatinine 0.9 Estimated GFR/1.73 m2 >= 60.00 Glucose 90 Calcium 9.2 Magnesium 2.2 C-Reactive Protein 1.53 H Urine HCG, Qual Negative Vancomycin Trough 12/09/20 12/08/20 07:05 13:30 WBC RBC Hgb Hct MCV MCH MCHC RDW Plt Count MPV Immature Gran % Neutrophils % Lymphocytes % Monocytes % Eosinophils % Basophils % Nucleated RBC % Absolute Neutrophils Absolute Lymphocytes Absolute Monocytes Absolute Eosinophils Absolute Basophils Sodium Potassium Chloride Carbon Dioxide Anion Gap BUN Creatinine Estimated GFR/1.73 m2 Glucose Calcium Magnesium C-Reactive Protein Urine HCG, Qual Vancomycin Trough 5.2 L 11.8 Preliminary micro results at discharge 12/07/20 05:25 Blood Culture - Preliminary Blood NO GROWTH 48 HOURS 12/07/20 05:38 Blood Culture - Preliminary Blood NO GROWTH 48 HOURS 12/05/20 16:00 Blood Culture - Preliminary Blood NO GROWTH 72 HOURS 12/05/20 15:40 Blood Culture - Preliminary Blood Aeromonas Hydrophila/Caviae Gram Negative [facility] Medical History (Updated 12/09/20 @ 11:46 by Amalia Duval MD) Cocaine abuse Drug-induced psychotic disorder Opiate addiction Surgical History No significant past surgical history Family History Other Depression Social History Smoking/Tobacco Use Status: Current every day Tobacco Type: e-cigarettes Smoking risk assessment performed?: Yes Alcohol Intake: never Drug use: Occasionally Substance use type: heroin Details: used wash earlier today, has no used IV in 2 days Do you feel safe at home: Yes Do you feel safe in your relationship?: Yes Additional Social history: Living in [place] with her female fianthony?, who also uses Not working. Graduated high school and started some college before getting deep into drugs. Parents live in [place]
[2020-12-09] MEDS: Buprenorphine/Naloxone 4 mg/1 mg FILM 1 EACH SL (11:12)
--- NOTE | 2020-12-09 11:33 | NUR.NOTE ---
Patient is leaving AMA. Dr Duval did explain risk to patient. Pt still decided at leave AMA Nursing Note:
[2020-12-09] MEDS: levoFLOXacin 500 MG, levoFLOXacin 250 MG 750 MG PO (11:40)
--- NOTE | 2020-12-09 15:57 | PDOC.CMDIS ---
- If Service Date Differs Date of service: 12/09/20 Time of Service: 15:57 LACE Index Scoring Tool - Questions: Length of Stay (in days): 4 - 6 Acuity (Admit via E.D.?): Yes E.D. Visits: 4 - Answers: Total Score: 11 Risk of Readmission: High Risk Care Management Discharge Reason for Hospitalization: Fever Discharge Plan: Rhonda left today against medical advice, prior to all of her blood cultures returning in order to determine the best antibiotic treatment plan. The MD attempted to keep her in the hospital by explaining the risks of leaving too soon, which she understood, but still declined to stay. CM called [facility], who reported that her JESSICA is still not showing active, but they are working on pushing it through today in order to cover her new prescriptions. Rhonda coordinated her own ride home via private vehicle. CM was unable to meet with her prior to her leaving the hospital. Rhonda stated that she wanted to establish care with [facility], which she planned to organize on her own. ROQUE encouraged Rhonda to complete intake paperwork with [facility] for out patient services. Rhonda has been connected to a coach mechanic whom she has a good relationship with. Patient/Family Education Needs: Review discharge instructions regarding activity levels and medications, discussion of self care needs including ask me three.
== END 2020-12-09 12:06 | disposition left against medical advice (07) | DRG 872 ==
LOC: ER 17:29 → MS 18:05
PROVIDERS: Internal Medicine; Admitting Provider Family Medicine; Emergency Provider Emergency Medicine; Visit Provider Family Medicine
DX: A41.59 Other Gram-negative sepsis (principal); F11.251 Opioid dependence with opioid-induced psychotic disorder with hallucinations; F11.23 Opioid dependence with withdrawal; F15.10 Other stimulant abuse, uncomplicated; F14.10 Cocaine abuse, uncomplicated; F17.210 Nicotine dependence, cigarettes, uncomplicated; Z18.11 Retained magnetic metal fragments; D64.9 Anemia, unspecified; E53.8 Deficiency of other specified B group vitamins; B19.20 Unspecified viral hepatitis C without hepatic coma; E87.6 Hypokalemia; E83.42 Hypomagnesemia; Z20.822 Contact with and (suspected) exposure to COVID-19
CPT/HCPCS: 36410; 36415; 72158; 80048; 80053; 80307; 84145; 85652; 87040; 87077; 87635; 96365; 96375; 96376; 99223; 99232; 99233; 99239; 99285; 71046; 72110; 73130; 80202; 80320; 80329; 81003; 81015; 81025; 82607; 82746; 83605; 83735; 85025; 85610; 86140; 87086; 87186; 93306; J2060; J2543; J3420; J3490